=== PATIENT | male | born 1950 | race Caucasian/White ===

== ENCOUNTER → 2016-05-30 | Outpatient (CLI) | payer OTHER ==
[~2016-05-30] MED LIST: APIX1TAB3; ATOR-24 PO; BRIM0.15 OP; CLC100 PO; DVN80125 PO; MULT-506 PO; OMEG10007 PO; OXYC7.5T62 PO; POTA10TA PO; SOTA80TA55 PO; TIMO0.05 OP
[2016-05-30 15:00] LABS: URINE APPEARANCE CLEAR (CLEAR); URINE BILIRUBIN NEG (NEG); URINE COLOR YELLOW; URINE EPITHELIAL CELL AUTO 0-5 /lpf (0-5); URINE NITRITE NEG (NEG); URINE PH 6.5 (4.5-7.5); URINE SPECIFIC GRAVITY 1.012 (1.000-1.030); UROBILINOGEN NEG (NEG); ZZUR CULT IF INDIC CLEAN CATCH NO
[2016-05-30 15:07] LABS: URINE PROTIEN/CREAT RATIO 0.2 (0-0.2); URINE TOTAL PROTEIN 10.2 mg/dl (0-11.9)
[2016-05-30 15:12] LABS: MANUAL MICROSCOPIC REQUIRED? NO; REVIEW REQ? NO
== END | disposition home or self-care (01) ==
LOC: C.LAB1850 13:37
PROVIDERS: ATTEND Internal Medicine Nephrology
DX: Z90.5 Acquired absence of kidney (principal)

== ENCOUNTER → 2016-06-04 | Outpatient (CLI) | payer OTHER ==
[2016-06-04 10:15] LABS: HEMATOCRIT 35.3 % (42-52); MEAN CELL VOLUME 82.5 fL (80-100); MEAN CORPUSCULAR HEMOGLOBIN 26.6 pg (25-34); MEAN CORPUSCULAR HGB CONC 32.3 g/dl (32-36); MEAN PLATELET VOLUME 10.4 fL (7.4-10.4); PLATELET COUNT 298 K/uL (130-400); RED BLOOD COUNT 4.28 M/uL (4.7-6.1); WHITE BLOOD COUNT 5.58 K/uL (4.8-10.8)
[2016-06-04 10:55] LABS: PROSTATE SPECIFIC ANTIGEN 3.58 ng/ml (0.000-4.000)
== END | disposition home or self-care (01) ==
LOC: C.LAB1850 09:22
PROVIDERS: ATTEND Internal Medicine
DX: Z00.00 Encounter for general adult medical examination without abnormal findings (principal); D64.9 Anemia, unspecified

== ENCOUNTER → 2016-10-04 | Outpatient (CLI) | payer OTHER ==
[~2016-10-04] MED LIST changes: +SOTA80TA20 PO; -SOTA80TA55 PO
[2016-10-04 12:03] LABS: HEMATOCRIT 39.3 % (42-52); MEAN CELL VOLUME 82.9 fL (80-100); MEAN CORPUSCULAR HEMOGLOBIN 26.2 pg (25-34); MEAN CORPUSCULAR HGB CONC 31.6 g/dl (32-36); MEAN PLATELET VOLUME 10.5 fL (7.4-10.4); PLATELET COUNT 263 K/uL (130-400); RED BLOOD COUNT 4.74 M/uL (4.7-6.1); WHITE BLOOD COUNT 5.47 K/uL (4.8-10.8)
[2016-10-04 12:10] LABS: ALT/SGPT 26 U/L (12-78); BLOOD UREA NITROGEN 17 mg/dl (7-18); BUN/CREATININE RATIO 12.9 (10-20); CARBON DIOXIDE 30 mmol/L (21-32); CHLORIDE 104 mmol/L (98-107); GLUCOSE 102 mg/dl (70-99); POTASSIUM 4.2 mmol/L (3.5-5.1); SODIUM 140 mmol/L (136-145)
[2016-10-04 12:12] LABS: CALCIUM 8.8 mg/dl (8.5-10.1)
[2016-10-04 12:13] LABS: ALKALINE PHOSPHATASE 91 U/L (45-117); AST/SGOT 18 U/L (15-37); PHOSPHORUS 3.2 mg/dl (2.5-4.9)
== END | disposition home or self-care (01) ==
LOC: C.LAB1850 09:48
PROVIDERS: ATTEND Internal Medicine Nephrology
DX: C64.9 Malignant neoplasm of unspecified kidney, except renal pelvis (principal); D64.9 Anemia, unspecified

== ENCOUNTER → 2016-10-15 | Outpatient (CLI) | payer OTHER ==
[~2016-10-15] MED LIST changes: +OPTIRAY 320 IV PRN
--- NOTE | 2016-10-15 10:13 | DIAGNOSTIC IMAGING REPORT ---
CT ABD/PELVIS IV CONTRAST ONLY CLINICAL HISTORY: CLEAR CELL CARCINOMA OF THE KIDNEY COMPARISON STUDY: 03/16/2016 TECHNIQUE: Following the IV administration of 93 mL of Optiray-320, CT scan of the abdomen and pelvis was performed from the lung bases to the proximal femurs. Images are reviewed in the axial, sagittal, and coronal planes. IV contrast was administered without complication. CT DOSE: FINDINGS: Lower chest: The heart is normal in size and configuration, without pericardial effusion. The lung bases and pleural spaces are clear. Liver: There is a stable 9 mm hypodensity within the lateral segment left hepatic lobe consistent with a cyst. Gallbladder: Cholelithiasis Spleen: Normal in size and attenuation. Pancreas: Unremarkable. Adrenal glands: Unremarkable. Kidneys: The left kidney is surgically absent. There is a stable 13 mm left renal hypodensity, likely representing a cyst. Bowel: There are no transition zones indicate bowel obstruction. The appendix appears normal. There is no acute diverticulitis. Peritoneum: There is no intraperitoneal free air or abdominal ascites. Vasculature: The abdominal aorta is normal in course and caliber. Adenopathy: There is no pathologic adenopathy by size criteria. Pelvic viscera: The bladder, and pelvic viscera are unremarkable. Skeletal structures: No destructive osseous lesions are seen. Degenerative changes are evident. There is multilevel spinal stenosis. IMPRESSION: Interval left nephrectomy. No evidence of metastatic disease within the abdomen or pelvis. Electronically signed by: Aleksey Mansfield M.D. 10/15/2016 10:12 AM Dictated Date/Time: 10/15/2016 10:07 AM
--- NOTE | 2016-10-15 10:15 | DIAGNOSTIC IMAGING REPORT ---
CT OF THE CHEST WITH IV CONTRAST CLINICAL HISTORY: Clear cell carcinoma of the kidney. COMPARISON STUDY: Chest radiograph May 04, 2016. TECHNIQUE: Following IV administration of 93 mL of Optiray-320, helical axial images of the chest were obtained. Images were viewed in the axial, sagittal and coronal planes. IV contrast was administered without complication. CT DOSE: 908.91 mGy.cm FINDINGS: No enlarged axillary, mediastinal or hilar lymph nodes are present. Mild cardiomegaly is noted. There is a trace pericardial effusion. Central airways are patent. There is no consolidation to suggest pneumonia. There is no pneumothorax or pleural effusion. Note is made of a 6 mm right lower lobe nodule shown image 171 of 311 and a 4 mm subpleural nodule within the right upper lobe on image 135. There is a 3 mm calcified granuloma within the right upper lobe. There is an azygos fissure. No suspicious osseous lesions are identified within visualized portions of the bony thorax. The abdomen and pelvis will be reported separately. The patient is status post left nephrectomy. IMPRESSION: 1. No convincing evidence of metastatic disease within the chest. 2. Two right lung nodules which measure up to 6 mm. These are likely benign but a follow-up chest CT in 6 months to ensure stability is recommended. 3. No thoracic lymphadenopathy. Electronically signed by: Piter Steel M.D. 10/15/2016 10:14 AM Dictated Date/Time: 10/15/2016 10:06 AM
== END | disposition home or self-care (01) ==
LOC: C.CTS 09:30
PROVIDERS: ATTEND Urology
DX: Z90.5 Acquired absence of kidney (principal)

== ENCOUNTER → 2017-02-22 | Outpatient (CLI) | payer OTHER ==
[~2017-02-22] VITALS: Ht 172.7 cm; Wt 89.6 kg
[~2017-02-22] MED LIST changes: -OPTIRAY 320 IV PRN; -SOTA80TA20 PO; +SOTA80TA55 PO
[2017-02-22 13:15] VITALS: BP 154/80; PULSE 56; Ht 172.7 cm; Wt 89.6 kg
== END | disposition home or self-care (01) ==
LOC: C.NEUR 12:25
PROVIDERS: ATTEND Internal Medicine Pulmonary Disease
DX: Z90.5 Acquired absence of kidney (principal); D64.9 Anemia, unspecified; I48.91 Unspecified atrial fibrillation; C64.9 Malignant neoplasm of unspecified kidney, except renal pelvis; E78.5 Hyperlipidemia, unspecified; E78.00 Pure hypercholesterolemia, unspecified; H40.9 Unspecified glaucoma; H91.90 Unspecified hearing loss, unspecified ear; R31.9 Hematuria, unspecified; I10 Essential (primary) hypertension; N28.89 Other specified disorders of kidney and ureter; R91.8 Other nonspecific abnormal finding of lung field; G47.33 Obstructive sleep apnea (adult) (pediatric); R00.2 Palpitations

== ENCOUNTER → 2017-04-08 | Outpatient (CLI) | payer OTHER ==
[~2017-04-08] MED LIST changes: +SOTA80TA20 PO; -SOTA80TA55 PO
[2017-04-08 09:27] LABS: BASO % 0.3 %; BASO ABS # 0.02 K/uL (0-0.2); COMPLETE YES; EOS % 4.3 %; HEMATOCRIT 41.8 % (42-52); IG% 0.2 %; LYMPH % 15.9 %; LYMPH ABS # 0.92 K/uL (1.2-3.4); MEAN CELL VOLUME 86.5 fL (80-100); MEAN CORPUSCULAR HEMOGLOBIN 28.6 pg (25-34); MONO % 9.2 %; NEUT % 70.1 %; PLATELET COUNT 281 K/uL (130-400); RED BLOOD COUNT 4.83 M/uL (4.7-6.1); WHITE BLOOD COUNT 5.78 K/uL (4.8-10.8)
[2017-04-08 09:53] LABS: ALT/SGPT 27 U/L (12-78); AST/SGOT 21 U/L (15-37); BLOOD UREA NITROGEN 20 mg/dl (7-18); BUN/CREATININE RATIO 17.3 (10-20); CALCIUM 8.8 mg/dl (8.5-10.1); CARBON DIOXIDE 30 mmol/L (21-32); CHLORIDE 101 mmol/L (98-107); CREATININE 1.13 mg/dl (0.60-1.40); GLUCOSE 110 mg/dl (70-99); MAGNESIUM 2.3 mg/dl (1.8-2.4); PHOSPHORUS 3.2 mg/dl (2.5-4.9); POTASSIUM 3.2 mmol/L (3.5-5.1); SODIUM 139 mmol/L (136-145)
[2017-04-08 09:57] LABS: ALKALINE PHOSPHATASE 126 U/L (45-117); FERRITIN 60.2 ng/ml (8.0-388.0); TOTAL IRON BINDING CAPACITY 326 mcg/dl (250-450)
[2017-04-08 10:43] LABS: URINE APPEARANCE CLEAR (CLEAR); URINE BILIRUBIN NEG (NEG); URINE COLOR DK YELLOW; URINE EPITHELIAL CELL AUTO >30 /lpf (0-5); URINE NITRITE NEG (NEG); URINE SPECIFIC GRAVITY 1.023 (1.000-1.030); UROBILINOGEN NEG (NEG); ZZUR CULT IF INDIC CLEAN CATCH NO
[2017-04-08 10:46] LABS: MANUAL MICROSCOPIC REQUIRED? NO; REVIEW REQ? NO
[2017-04-08 11:13] LABS: URINE PROTIEN/CREAT RATIO 0.1 (0-0.2); URINE TOTAL PROTEIN 44.7 mg/dl (0-11.9)
--- NOTE | 2017-04-12 12:29 | CODING QUERY MEDICAL NECESSITY ---
CQSUPPORTING DIAGNOSIS NEEDED A supporting diagnosis is required for the test/procedure performed on this patient in order for us to be reimbursed by the patient's insurance. Please provide a supporting diagnosis for the following test/procedure listed below next to the test name along with your signature. *If there is no additional diagnosis for this patient that would support the following test/procedure please document that below next to the test/procedure. Test(s)/Procedure(s) that require a supporting diagnosis: DOS 04/08/17 PROSTATE SPECIFIC TEST Provider Signature: Date: Thank you La Mendoza [email or web address] Information [employer] Once completed, please kindly fax back to [phone] For questions please call [phone]
--- NOTE | 2017-04-12 12:32 | CODING QUERY MEDICAL NECESSITY ---
CQSUPPORTING DIAGNOSIS NEEDED A supporting diagnosis is required for the test/procedure performed on this patient in order for us to be reimbursed by the patient's insurance. Please provide a supporting diagnosis for the following test/procedure listed below next to the test name along with your signature. *If there is no additional diagnosis for this patient that would support the following test/procedure please document that below next to the test/procedure. Test(s)/Procedure(s) that require a supporting diagnosis: DOS 04/08/17 VITAMIN D TEST Provider Signature: Date: Thank you La Mendoza [employer] Information Management Once completed, please kindly fax back to [phone] For questions please call [phone]
== END | disposition home or self-care (01) ==
LOC: C.LAB1850 08:42
PROVIDERS: ATTEND Internal Medicine Nephrology
DX: I10 Essential (primary) hypertension (principal); N28.89 Other specified disorders of kidney and ureter; Z90.5 Acquired absence of kidney; D64.9 Anemia, unspecified

== ENCOUNTER → 2017-04-16 | Outpatient (CLI) | payer OTHER ==
--- NOTE | 2017-04-16 13:08 | DIAGNOSTIC IMAGING REPORT ---
CT SCAN OF THE CHEST WITH IV CONTRAST CLINICAL HISTORY: Follow-up pulmonary nodules. Renal cell carcinoma. COMPARISON STUDY: Chest CT dated 10/15/2016. TECHNIQUE: Following the IV administration of 94 cc of Optiray 320, CT scan of the thorax was performed from the thoracic inlet to the upper abdomen. Images are reviewed in the axial, sagittal, and coronal planes. IV contrast was administered without complication. A dose lowering technique was utilized adhering to the principles of ALARA. CT DOSE: 481.69 mGycm FINDINGS: Thyroid: Imaged portions of the thyroid gland are normal in size and attenuation. Thoracic aorta: There is atherosclerotic calcification of the thoracic aorta, which is normal in caliber and demonstrates bovine variant arch anatomy. No dissection is seen. Pulmonary vasculature: The pulmonary trunk is normal in caliber. There are no filling defects identified in the central pulmonary vessels to indicate pulmonary embolus. Note that this examination was not protocoled for evaluation of the pulmonary arteries. Heart: The heart is enlarged and without pericardial effusion. The coronary arteries are densely calcified. Lungs and pleural spaces: Mild emphysema is identified. An accessory azygous fissure is incidentally noted. No airspace consolidation or pleural effusion is seen. The trachea and central airways are clear. A 6 mm right lower lobe nodule is again seen on image #210. A 3 mm right upper lobe nodule is seen on image #156, a 2 mm right upper lobe nodule on image #97, and a 3 mm pleural-based nodule at the left apex is seen on image #76. These are unchanged from previous. No new pulmonary nodules are identified. A small calcified granuloma is noted in the right upper lobe. Mediastinum: Small calcified nodes are incidentally noted. There is no mediastinal lymphadenopathy. Sonam: There are small calcified hilar lymph nodes. No pathologically enlarged lymph nodes are seen. Axillae: There is no axillary lymphadenopathy. Upper abdomen: There is a tiny hiatal hernia. Calcified gallstones are observed. Findings suggest history of left nephrectomy. 1.4 cm right renal cyst is partially visualized. Skeletal structures: The skeletal structures are osteopenic. Mild degenerative change is seen throughout the thoracic spine. No lytic or blastic bony lesions are seen. IMPRESSION: 1. There is no definite evidence of intrathoracic metastatic disease. 2. Scattered (less than 5) indeterminant pulmonary and pleural-based nodules measuring up to 6 mm are unchanged in size and distribution from 10/15/2016. Continued attention at follow-up is recommended. 3. Cardiomegaly and mild emphysema. 4. No airspace consolidation or pleural effusion is identified. 5. Additional findings as above. Electronically signed by: Federico Krause M.D. 04/16/2017 1:07 PM Dictated Date/Time: 04/16/2017 12:58 PM
== END | disposition home or self-care (01) ==
LOC: C.CTS 11:05
PROVIDERS: ATTEND Urology
DX: N28.89 Other specified disorders of kidney and ureter (principal); R91.8 Other nonspecific abnormal finding of lung field; I51.7 Cardiomegaly

== ENCOUNTER → 2017-05-03 | Outpatient (CLI) | payer OTHER ==
[2017-05-03 13:04] LABS: BLOOD UREA NITROGEN 24 mg/dl (7-18); CALCIUM 8.5 mg/dl (8.5-10.1); CARBON DIOXIDE 31 mmol/L (21-32); CHLORIDE 102 mmol/L (98-107); GLUCOSE 101 mg/dl (70-99); MAGNESIUM 2.4 mg/dl (1.8-2.4); POTASSIUM 3.9 mmol/L (3.5-5.1); SODIUM 137 mmol/L (136-145)
[2017-05-03 13:22] LABS: BUN/CREATININE RATIO 21.8 (10-20)
== END | disposition home or self-care (01) ==
LOC: C.LAB1850 11:01
PROVIDERS: ATTEND Internal Medicine Nephrology
DX: E87.6 Hypokalemia (principal)

== ENCOUNTER → 2017-08-08 | Outpatient (CLI) | payer OTHER ==
[2017-08-08 09:55] LABS: BASO % 0.5 %; BASO ABS # 0.03 K/uL (0-0.2); EOS % 5.7 %; EOS ABS # 0.33 K/uL (0-0.5); HEMATOCRIT 37.3 % (42-52); HEMOGLOBIN 12.2 g/dL (14.0-18.0); IG# 0.01 K/uL (0.00-0.02); LYMPH % 15.9 %; LYMPH ABS # 0.92 K/uL (1.2-3.4); MEAN CELL VOLUME 84.6 fL (80-100); MEAN CORPUSCULAR HEMOGLOBIN 27.7 pg (25-34); MEAN CORPUSCULAR HGB CONC 32.7 g/dl (32-36); MEAN PLATELET VOLUME 10.4 fL (7.4-10.4); MONO % 8.3 %; MONO ABS # 0.48 K/uL (0.11-0.59); NEUT % 69.4 %; PLATELET COUNT 281 K/uL (130-400); RED CELL DISTRIBUTION WIDTH CV 14.8 % (11.5-14.5); RED CELL DISTRIBUTION WIDTH SD 45.4 fL (36.4-46.3); WHITE BLOOD COUNT 5.77 K/uL (4.8-10.8)
[2017-08-08 10:31] LABS: HEMOGLOBIN A1C 5.9 % (4.5-5.6)
== END | disposition home or self-care (01) ==
LOC: C.LAB1850 08:41
PROVIDERS: ATTEND Nurse Practitioner Adult Health
DX: R73.9 Hyperglycemia, unspecified (principal); E78.5 Hyperlipidemia, unspecified; D64.9 Anemia, unspecified

== ENCOUNTER → 2017-09-20 | Outpatient (CLI) | payer OTHER ==
[~2017-09-20] MED LIST changes: -TIMO0.05 OP; +TIMO0.2518 OP
[2017-09-20 13:34] LABS: ALBUMIN 3.9 gm/dl (3.4-5.0); ALT/SGPT 24 U/L (12-78); AST/SGOT 21 U/L (15-37); BLOOD UREA NITROGEN 20 mg/dl (7-18); CARBON DIOXIDE 33 mmol/L (21-32); CREATININE 1.19 mg/dl (0.60-1.40); GLUCOSE 99 mg/dl (70-99); POTASSIUM 3.9 mmol/L (3.5-5.1); SODIUM 140 mmol/L (136-145)
[2017-09-20 13:37] LABS: ALKALINE PHOSPHATASE 99 U/L (45-117); TOTAL PROTEIN 7.8 gm/dl (6.4-8.2)
== END | disposition home or self-care (01) ==
LOC: C.LAB1850 10:30
PROVIDERS: ATTEND Urology
DX: I48.91 Unspecified atrial fibrillation (principal); I10 Essential (primary) hypertension; N28.89 Other specified disorders of kidney and ureter; Z90.5 Acquired absence of kidney; C64.9 Malignant neoplasm of unspecified kidney, except renal pelvis

== ENCOUNTER → 2017-09-30 | Outpatient (CLI) | payer OTHER ==
[~2017-09-30] MED LIST changes: +OPTIRAY 320 IV PRN
--- NOTE | 2017-09-30 11:43 | DIAGNOSTIC IMAGING REPORT ---
ABD/PELVIS IV CONTRAST ONLY CLINICAL HISTORY: 67 years-old Male presenting with C64.9 kidney cancer. TECHNIQUE: Multidetector CT of the abdomen and pelvis was performed after the administration of intravenous contrast. IV contrast: 80 mL of Optiray 320. A dose lowering technique was used consistent with the principles of ALARA (as low as reasonably achievable). COMPARISON: 10/15/2016. CT DOSE (mGy.cm): The estimated cumulative dose is 554.88 mGy.cm. FINDINGS: Software Engineering Manager topogram: Cholelithiasis. Lung bases: Minimal basilar opacities, likely atelectasis. Mild biatrial enlargement of the heart. Coronary artery calcification. No pericardial or pleural effusion. Liver: Normal morphology. Well-defined hypodensity in the left hepatic lobe likely hepatic cyst or hamartoma. Patent hepatic vasculature. Biliary: No intrahepatic or extrahepatic biliary ductal dilatation. Gallbladder contains gallstones. Focal wall thickening of the fundus likely adenomyomatosis. Pancreas: Normal. Spleen: Normal. Adrenal glands: Postsurgical changes of left adrenalectomy or partial adrenalectomy suspected with surgical material in the left suprarenal fossa. Kidneys and ureters: Postsurgical changes of left nephrectomy. The residual left ureter in the mid to distal portion is normal appearing. No suspicious soft tissue in the operative bed. Right kidney contains a well-defined hypodense lesion unchanged in appearance since prior and consistent with simple cyst. No hydronephrosis or nephrolithiasis. Right ureter normal. Bladder: Incompletely evaluated secondary to underdistention. Pelvic organs: Prostate enlargement likely secondary to benign prostatic hyperplasia. Bowel: Normal appendix. No bowel obstruction. Intermittent feces noted in the small bowel without convincing evidence of small bowel obstruction. The appearance is similar to prior exam. Could suggest delayed transit or intervening stenoses with low-grade obstruction. Peritoneal cavity: No free fluid or intraperitoneal gas. Lymph nodes: No enlarged lymph nodes in the abdomen or pelvis. Vasculature: Atherosclerosis of the normal caliber abdominal aorta. IVC patent. Abdominal wall: Normal. Musculoskeletal: Degenerative changes of the spine. IMPRESSION: 1. Postsurgical changes of left nephrectomy without evidence of residual or recurrent disease. No metastatic disease in abdomen or pelvis. No lymphadenopathy. 2. Redemonstration of feces in the small bowel without convincing evidence of a complete bowel obstruction. Findings could represent delayed transit or multifocal small bowel stenosis with low-grade partial obstruction. Electronically signed by: Kiel Ramos M.D. 09/30/2017 11:42 AM Dictated Date/Time: 09/30/2017 11:29 AM
--- NOTE | 2017-09-30 11:45 | DIAGNOSTIC IMAGING REPORT ---
CHEST 2 VIEWS ROUTINE CLINICAL HISTORY: 67 years-old Male presenting with C64.9 Clear cell carcinoma of [id number]. TECHNIQUE: PA and lateral views of the chest were obtained. COMPARISON: 05/04/[address] from 04/16/2017. FINDINGS: Atherosclerosis of the aortic arch. Cardiac silhouette normal in size. Incidental note made of an azygos fissure Lungs and pleural spaces clear. Degenerative changes of the thoracic spine. Upper abdomen normal. IMPRESSION: 1. No acute cardiopulmonary disease. Sensitivity of evaluation for metastatic disease by radiograph is extremely limited. If there is clinical concern for metastatic disease, chest CT should be obtained. Electronically signed by: Kiel Ramos M.D. 09/30/2017 11:44 AM Dictated Date/Time: 09/30/2017 11:42 AM
== END | disposition home or self-care (01) ==
LOC: C.CTS 10:53
PROVIDERS: ATTEND Urology
DX: C64.9 Malignant neoplasm of unspecified kidney, except renal pelvis (principal)

== ENCOUNTER → 2017-11-27 | Outpatient (CLI) | payer OTHER ==
[~2017-11-27] MED LIST changes: -OPTIRAY 320 IV PRN
--- NOTE | 2017-11-28 06:16 | PAP/PSG TECHNICIAN REPORT ---
[facility] Yardage Tufting Machine Operator Polysomnogram Report Study name: None Report date: 11/28/2017 Study date: 11/27/2017 Referring Physician: Dr. Elton Chamberlain DO Name: PRITESHRACHELLGERMAINECHEIKH SPAULDING Interpreting Physician: Elton Chamberlain D.O. Date of : 1950 Yardage Tufting Machine Operator: Magnolia Lange RPSGT. Sex: Male Age: 67 Study Type: PSG Weight: 200 lbs Height: 67 years, Height 5' 8" BMI: 30.41 Medications: Eliquis 5 mg, Flecainide Acetate 100 mg, Metoprolol Succinate ER 25 mg, Docusate Sodium 100 mg, Atorvastatin Calcium 40 mg, Amlodipine Besylate 5 mg, Valsartan-HCTZ 130-25 mg, K-Tab 10 MEQ, Fish Oil caps, Lantanoprost 0.005%, Multi Vitmains Patient History 67 yr-old male here for a baseline study. Patient complains of snoring and some fatigue. He had a HST on 10/29/16 that showed an CANDIDA of 5.8, he declined treatment at that time but is now more fatigued. His Weiner Scale is 13/24. The test was started on room air. ETC02 testing was not utilized during this study. Room 3 Parameters Monitored NPSG: E1-M2, E2-M1, Fp1-M2, Fp2-M1, F3-M2, F4-M2, F4-M1, C3-M2, C4-M2, C4-M1, O1-M2, O2-M2, O2-M1, T3-M2, T4-M1, P3-M2, P4-M1, CHIN1, CHIN2, HR, EKG, Legs, PFLOW, SNOR, FLOW, CFLOW, Tidal Volume, THOR, ABDO, SpO2, PLTH, CPRESS, ETCO2 Wave, ETCO2, pH Sleep Architecture Sleep Stages Time at Lights Off 10:40:29 PM STAGES Time (min.) TST (%) Time at Lights On 5:24:29 AM Wake 120.0 -- Total Recording Time (TRT) 404.00 min. N1 36.5 13 Total Sleep Period (TSP) 393.5 min. N2 168.5 59 Total Sleep Time (TST) 284.0min. N3 35.5 13 Awake Time 120.0 min. REM 43.5 15 Wake after Sleep Onset 109.5 min. Sleep Efficiency (SE) 70 % Sleep Onset Latency (ALBERT) 10.5 min. Number of Stage 1 Shifts None Awakenings 21 Stage Changes 94 Number of REM periods 3 REM 43.5 15 REM Latency 110.0 min. NREM 240.5 85 Body Position Analysis Supine Right Left Side Prone Vertical Total Sleep Time (min.) 28.4 0.0 271.0 271.00 0.0 0.0 Total Sleep Time (%) 5% 0% 95% 95 0% N/A% Total Sleep Time REM (min.) 0.0 0.0 43.5 None 0.0 0.0 Total Sleep Time NREM (min.) 13.0 0.0 227.5 None 0.0 0.0 Intermittent Wake (min.) 15.4 0.0 104.6 None 0.0 0.0 Total Sleep Period (%) 7% None None None None None Arousals Myoclonus (PLM) * Events Count Index Events Count Index Spontaneous 13 3 Events Awake (PLMW) 62 31.0 Respiratory 36 8.0 Events Asleep w/ Arousal (PLMA) 10 2.1 PLM 10 2 Events Asleep w/o Arousal (PLMS) 88 18.6 Snoring 7 1 Total Asleep 98 20.7 Total 66 14 Total 160 24 Respiratory Analysis * CA OA MA CH H RERA Total Count 26 1 2 0 49 5 78 Index 5.5 0.2 0.4 0 10.4 1 17.5 Mean Duration 25.4 17.9 28.1 0.00 24.6 22.2 24.7 Longest Duration 38.6 17.9 35.4 0.00 35.4 25.3 46.0 Respiratory Event Summary Total Supine ~Supine Right Left Prone REM NREM Apneas Count 29 17 12 N/A 12 N/A 0 29 Index 6.1 78 3 N/A 2.7 N/A 0 7 Hypopneas (4% Desat) Count 49 0 49 N/A 49 N/A 3 46 Index 10.4 0.0 11 N/A 10.8 N/A 4.1 11.5 Apneas & All Hypopneas Count 78 17 61 N/A 61 N/A 3 75 Index 16.5 78 14 N/A 14 N/A 4.1 18.7 Respiratory Events (Feed Grinder+All Hyp+RERA) Count 78 17 66 N/A 66 N/A 3 75 Index 17.5 78 15 N/A 14.6 N/A 4.1 20.0 Respiratory Related Arousal Count 36 17 22 N/A 22 N/A 2 36 Index 8.0 74 5 N/A 5 N/A 3 9 Snoring Analysis Supine Right Left Prone REM NREM Total Snore duration 58.1 min Snores count 25 N/A 1,723 N/A 19 1,729 1,748 Snore mean duration 2.0 Sec Snores index 115 N/A 381 N/A 26.2 431.4 369.3 TST with snoring (%) 20.4% Desaturation Event Summary: Minimum %SpO2 Event Count Mean/Min/Max Duration(sec.) Desaturation Index % Time In Bed > 90 115 27.6 / 5.5 / 60.0 24.3 75.6 86 - 90 4 19.3 / 5.5 / 33.0 2.7 24.0 81 - 85 1 13.8 / 13.8 / 13.8 34.2 0.5 76 - 80 0 N/A 0.0 0.0 71 - 75 0 N/A 0.0 0.0 66 - 70 0 N/A 0.0 0.0 61 - 65 0 N/A 0.0 0.0 56 - 60 0 N/A 0.0 0.0 51 - 55 0 N/A 0.0 0.0 < 50 0 N/A 0.0 0.0 Total REM NREM Awake <50% 0.0 min. 0.0 min. 0.0 min. 0.0 min. 51 - 60% 0.0 min. 0.0 min. 0.0 min. 0.0 min. 61 - 70% 0.0 min. 0.0 min. 0.0 min. 0.0 min. 71 - 80% 0.0 min. 0.0 min. 0.0 min. 0.0 min. 81 - 90% 91.7 min. 3.1 min. 67.1 min. 21.5 min. 91 - 100% 283.5 min. 40.4 min. 173.4 min. 69.7 min. Average 92 92 92 92 Minimum SpO2 78 85 82 78 Desaturation Event Index 17.2 4.1 20.0 18.0 # Desat. Events below 89% 34 2 24 8 Time(%) with Saturation below 89% 3.1 0.2 2.3 0.6 Time(min.) with Saturation below 89% 11.6 0.7 8.7 2.2 Time (mins) REM (mins) NREM (mins) % of TST SpO2 Below 90% 62 2 N60 13.1 SpO2 Below 88% 13 0 0 1 Heart Rate Analysis Min (bpm) Max (bpm) Average (bpm) Awake 47 173 80 NREM 50 100 69 REM 54 97 72 Overall 50 100 70 Supplemental O2 Values Minimum O2 level: None Value Start Time End Time Yardage Tufting Machine Operator Comments Mr. Stallings slept in the left and supine positions. Cardiac arrhythmias were noted (please refer to the printouts). Some PLMs were noted. No bruxism noted. Snoring was noted and scored as a 3-4 on a scale of 1 through 5. (0=no snoring, 5=snoring loud enough to be heard through a closed door or down the whaley way). He used the restroom seven times during the night. Mr. Stallings stated that he slept about the same as usual. The final report will be interpreted and signed by a sleep physician. The completed physician report will then be placed in the patient medical record. Therapy (cm H2O) 0 TIB (min.) 404.0 TST (min.) 284.0 Sleep Onset (min.) 10.5 REM Onset From Sleep (min.) 110.0 Sleep Efficiency % 70 Wakefulness (%) 30 Wakefulness (min.) 120.0 NREM 1 (%) 13 NREM 1 (min.) 36.5 NREM 2 (%) 59 NREM 2 (min.) 168.5 NREM 3 (%) 13 NREM 3 (min.) 35.5 REM (%) 15 REM (min.) 43.5 # Arousals 66 Arousal Index 14 # Snore 1,748 Snore Index 369.3 AHI 16.5 AHI Supine 78 AHI Non-Supine 14 NREM AHI 18.7 REM AHI 4.1 RDI 17.5 # Obstructive Apnea 1 # Central Apnea 26 # Mixed Apnea 2 # Hypopneas 49 RERAs 5 Total Respiratory Events 88 Time Below SpO2 89% (min.) 9.3 Mean NREM SpO2 (%) 92 Mean REM SpO2 (%) 92 Mean Sleep SpO2 (%) 92 Min NREM SpO2 (%) 82 Min REM SpO2 (%) 85 Position Supine (min.) 28.4 Position Non-supine (min.) 271.0 LM Index Sleep 20.7 LM Index NREM 23.5 LM Index REM 5.5 Mean Heart Rate (bpm) 70 Min Heart Rate (bpm) 50
--- NOTE | 2017-11-29 19:01 | POLYSOMNOGRAPH REPORT ---
CLINICAL DATA: The patient is a 67-year-old male with a history of snoring and fatigue. His Padroni sleepiness scale score is 13. He has a history of hypertension and atrial fibrillation. The patient had a home sleep study done 10/29/2016 that showed an CANDIDA 5.8 indicating mild sleep apnea. He declined treatment at that time, but now is having more fatigue. This was an in-lab overnight diagnostic polysomnography. SLEEP ARCHITECTURE: The total sleep period is 393.5 minutes. The total sleep time is 284 minutes. The sleep efficiency is decreased to 70%. The sleep onset latency was 10.5 minutes. Wake after sleep onset was increased to 109.5 minutes. The REM latency was top normal at 110 minutes. There were 2 REM periods during the night. Sleep consisted of stage N1 13%, stage N2 59%, stage N3 13%, stage REM 15%. AROUSAL DATA: The patient had 66 arousals including 13 spontaneous, 13 respiratory, 10 PLM, and 7 snoring arousals. The arousal index was 14. PLM DATA: The patient had 98 periodic limb movements for a PLM index of 20.7. There were 10 arousals associated with limb movements for a PLM arousal index of 2.1. EKG: The cardiac rhythm at the start of the study was normal sinus. He converted to atrial fibrillation at 12:26 a.m. He converted back to sinus rhythm at 4:50 a.m. The cardiac rates ranged from 50 to 100 beats per minute with an average of 70 beats per minute. RESPIRATORY DATA: The patient had a total of 78 respiratory events including 26 central apneas, 1 obstructive apnea, 2 mixed apneas, and 49 hypopneas. Hypopneas were scored according to the 4% desaturation rule. There were 5 RERAs. The longest apnea was 38.6 seconds. The mean duration of the hypopneas was 24.6 seconds. The apnea hypopnea index was elevated at 16.5 events per hour. This would represent moderate obstructive sleep apnea. OXIMETRY DATA: The average saturation for the night was 92%. The minimum saturation was 78%. These desaturations occurred for the most part when he was having apnea and when he was in the supine position. There was a total of 11.6 minutes with saturations less than 89%. ROUTER TENDER COMMENTS: Mr. Stallings slept in the left and supine positions. Cardiac arrhythmias were noted. Some PLMs were noted. No bruxism noted. Snoring was noted and scored as a 3-4 on a scale of 1 through 5. He used the restroom 7 times during the night. He stated that he slept about the same as usual. IMPRESSION: 1. Moderate obstructive sleep apnea. 2. Paroxysmal atrial fibrillation. RECOMMENDATIONS: 1. It is advised that the patient be given a trial of nasal CPAP. The options would include an in-lab CPAP titration, which would be preferred in light of the central sleep apneas noted. Alternatively, he could be treated with auto CPAP. 2. It is strongly advised that the patient avoid sleeping in the supine position. Although, he had relatively little time supine during this study, the apnea-hypopnea index while supine was 78. 3. Weight loss is advised in light of the elevation of body mass index at 30.41.
== END | disposition home or self-care (01) ==
LOC: C.NEUR 21:00
PROVIDERS: ATTEND Internal Medicine Pulmonary Disease
DX: G47.33 Obstructive sleep apnea (adult) (pediatric) (principal); I48.0 Paroxysmal atrial fibrillation

== ENCOUNTER → 2017-12-24 | Outpatient (CLI) | payer OTHER ==
--- NOTE | 2017-12-25 06:24 | PAP/PSG TECHNICIAN REPORT ---
[facility] Bench Boring Machine Operator Polysomnogram Report Study name: None Report date: 12/25/2017 Study date: 12/24/2017 Referring Physician: Dr. Elton Chamberlain DO Name: CHEIKH STALLINGS Interpreting Physician: Elton Chamberlain D.O. Date of : 1950 Bench Boring Machine Operator: Magnolia Lange RPSGT. Sex: Male Age: 67 Study Type: PSG PAP Weight: 200 lbs Height: 67 years, Height 5' 8" BMI: 30.41 Medications: Eliquis 5 mg, Flecainide Acetate 100 mg, Metoprolol Succinate ER 25 mg, Docusate Sodium 100 mg, Atorvastatin Calcium 40 mg, Amlodipine Besylate 5 mg, Valsartan-HCTZ 130-25 mg, K-Tab 10 MEQ, Fish Oil caps, Lantanoprost 0.005%, Multi Vitmains Patient History 67 yr-old male here for a new CPAP treatment study. He was found to be positive for AYAN with an AHI of 16.5. His diagnostic study was on 11/27/17. He chose a Simplus full face mask size medium from [employer]. The test was started on room air and 4 CMH2O then increased to 6 CMH2O for his request for more air. ETCO2 testing was not utilized during this study. Room 1 Parameters Monitored NPSG: E1-M2, E2-M1, Fp1-M2, Fp2-M1, F3-M2, F4-M2, F4-M1, C3-M2, C4-M2, C4-M1, O1-M2, O2-M2, O2-M1, T3-M2, T4-M1, P3-M2, P4-M1, CHIN1, CHIN2, HR, EKG, Legs, PFLOW, SNOR, FLOW, CFLOW, Tidal Volume, THOR, ABDO, SpO2, PLTH, CPRESS, ETCO2 Wave, ETCO2, pH Sleep Architecture Sleep Stages Time at Lights Off 10:58:16 PM STAGES Time (min.) TST (%) Time at Lights On 5:30:46 AM Wake 51.0 -- Total Recording Time (TRT) 392.50 min. N1 49.0 14 Total Sleep Period (TSP) 386.0 min. N2 201.5 59 Total Sleep Time (TST) 341.5min. N3 37.5 11 Awake Time 51.0 min. REM 53.5 16 Wake after Sleep Onset 44.5 min. Sleep Efficiency (SE) 87 % Sleep Onset Latency (ALBERT) 6.5 min. Number of Stage 1 Shifts None Awakenings 24 Stage Changes 107 Number of REM periods 8 REM 53.5 16 REM Latency 56.5 min. NREM 288.0 84 Body Position Analysis Supine Right Left Side Prone Vertical Total Sleep Time (min.) 50.1 83.0 210.5 293.53 0.0 0.0 Total Sleep Time (%) 14% 24% 62% 86 0% N/A% Total Sleep Time REM (min.) 14.0 14.0 25.5 None 0.0 0.0 Total Sleep Time NREM (min.) 34.0 69.0 185.0 None 0.0 0.0 Intermittent Wake (min.) 2.2 5.9 43.0 None 0.0 0.0 Total Sleep Period (%) 13% None None None None None Arousals Myoclonus (PLM) * Events Count Index Events Count Index Spontaneous 25 4 Events Awake (PLMW) 36 42.4 Respiratory 25 5.3 Events Asleep w/ Arousal (PLMA) 18 3.2 PLM 18 3 Events Asleep w/o Arousal (PLMS) 106 18.6 Snoring 3 1 Total Asleep 124 21.8 Total 71 12 Total 160 24 Respiratory Analysis * CA OA MA CH H RERA Total Count 19 11 4 0 17 6 51 Index 3.3 1.9 0.7 0 3.0 1 10.0 Mean Duration 14.7 22.6 29.8 0.00 25.3 25.8 21.6 Longest Duration 23.7 33.6 34.1 0.00 34.1 36.0 36.0 Respiratory Event Summary Total Supine ~Supine Right Left Prone REM NREM Apneas Count 34 25 9 6 3 N/A 4 30 Index 6.0 31 2 4.3 0.9 N/A 4 6 Hypopneas (4% Desat) Count 17 7 10 1 9 N/A 2 15 Index 3.0 8.8 2 0.7 2.6 N/A 2.2 3.1 Apneas & All Hypopneas Count 51 32 19 7 12 N/A 6 45 Index 9.0 40 4 5 3 N/A 6.7 9.4 Respiratory Events (Commodity [employer]ker+All Hyp+RERA) Count 51 32 25 9 16 N/A 6 45 Index 10.0 40 5 6.5 4.6 N/A 6.7 10.6 Respiratory Related Arousal Count 25 32 13 3 10 N/A 4 26 Index 5.3 21 3 2 3 N/A 4 5 Snoring Analysis Supine Right Left Prone REM NREM Total Snore duration 19.8 min Snores count 63 92 597 N/A 20 732 752 Snore mean duration 1.6 Sec Snores index 79 66 170 N/A 22.4 152.5 132.1 TST with snoring (%) 5.8% Desaturation Event Summary: Minimum %SpO2 Event Count Mean/Min/Max Duration(sec.) Desaturation Index % Time In Bed > 90 49 29.5 / 9.3 / 58.0 7.7 99.2 86 - 90 0 N/A 0.0 0.7 81 - 85 0 N/A 0.0 0.0 76 - 80 0 N/A 0.0 0.0 71 - 75 0 N/A 0.0 0.0 66 - 70 0 N/A 0.0 0.0 61 - 65 0 N/A 0.0 0.0 56 - 60 0 N/A 0.0 0.0 51 - 55 0 N/A 0.0 0.0 < 50 0 N/A 0.0 0.0 Total REM NREM Awake <50% 0.0 min. 0.0 min. 0.0 min. 0.0 min. 51 - 60% 0.0 min. 0.0 min. 0.0 min. 0.0 min. 61 - 70% 0.0 min. 0.0 min. 0.0 min. 0.0 min. 71 - 80% 0.1 min. 0.0 min. 0.0 min. 0.1 min. 81 - 90% 2.9 min. 0.5 min. 2.2 min. 0.2 min. 91 - 100% 380.3 min. 53.0 min. 285.1 min. 42.3 min. Average 94 95 94 95 Minimum SpO2 77 87 85 77 Desaturation Event Index 7.5 3.4 7.9 9.4 # Desat. Events below 89% 6 N/A 6 N/A Time(%) with Saturation below 89% 0.4 0.1 0.3 0.0 Time(min.) with Saturation below 89% 1.4 0.2 1.0 0.1 Heart Rate Analysis Min (bpm) Max (bpm) Average (bpm) Awake 45 281 57 NREM 43 68 50 REM 42 64 50 Overall 42 68 50 Supplemental O2 Values Minimum O2 level: None Value Start Time End Time Bench Boring Machine Operator Comments Mr. Stallings slept in the right, left, and supine positions. No cardiac arrhythmias were noted. PLMs were noted. No bruxism noted. CPAP was initiated at +4 CMH2O and up-titrated to a level of +13 CMH2O, Cflex 3. He did have some central apneas while supine. A Simplus full face mask size medium from [employer] was used during titration. He awoke to use the restroom one time during the night. Mr. Stallings stated that he slept ok. The final report will be interpreted and signed by a sleep physician. The completed physician report will then be placed in the patient medical record. CPAP REPORT Therapy Detail Time / Page # Comment CPAP 4 cm H2O Full Face Mask Flex Pressure Relief Humidifier on 10:57:36 PM / pg. 171 CPAP 6 cm H2O Full Face Mask Flex Pressure Relief Humidifier on 10:58:20 PM / pg. 173 INCREASED AT HIS REQUEST FOR MORE AIR CPAP 7 cm H2O Full Face Mask Flex Pressure Relief Humidifier on 11:43:55 PM / pg. 264 INCREASED FOR SNORING AND HYPOPNEAS CPAP 8 cm H2O Full Face Mask Flex Pressure Relief Humidifier on 12:37:04 AM / pg. 370 INCREASED FOR LOUD SNORING AND MORE HYPOPNEAS CPAP 10 cm H2O Full Face Mask Flex Pressure Relief Humidifier on 3:18:58 AM / pg. 694 INCREASED FOR APNEAS CPAP 11 cm H2O Full Face Mask Flex Pressure Relief Humidifier on 4:50:18 AM / pg. 877 INCREASED FOR RERAS AND APNEA CPAP 13 cm H2O Full Face Mask Flex Pressure Relief Humidifier on 5:09:50 AM / pg. 916 INCREASED FOR APNEAS AND HYPOPNEAS WHILE SUPINE Therapy Event: Therapy (cm H20) 4 6 7 8 10 11 13 Total Time at Pressure (min.) 0.1 45.6 53.1 161.9 91.3 19.5 20.9 TST at Pressure (min.) 0.0 35.2 44.6 137.9 85.8 19.0 18.9 # Periods 1 1 1 1 1 1 1 Sleep Onset (min.) N/A 6.4 0.0 0.0 0.0 0.0 0.0 REM Onset (min.) N/A N/A 17.3 26.2 17.3 8.0 0.0 Sleep Efficiency % 0 77 84 85 94 97 90 Wakefulness (%) 100.0 22.9 16.0 14.8 6.0 2.6 9.6 Wakefulness (min.) 0.1 10.4 8.5 24.0 5.5 0.5 2.0 NREM 1 (%) 0.0 11.0 10.3 11.9 15.7 10.2 14.3 NREM 1 (min.) 0.0 5.0 5.5 19.2 14.3 2.0 3.0 NREM 2 (%) 0.0 40.6 63.6 44.9 63.0 53.6 40.6 NREM 2 (min.) 0.0 18.5 33.8 72.7 57.5 10.5 8.5 NREM 3 (%) 0.0 25.6 6.3 13.9 0.0 0.0 0.0 NREM 3 (min.) 0.0 11.7 3.3 22.5 0.0 0.0 0.0 REM (%) 0.0 0.0 3.8 14.5 15.3 33.6 35.5 REM (min.) 0.0 0.0 2.0 23.5 14.0 6.6 7.4 # Arousals N/A 6 10 27 17 7 4 Arousal Index N/A 10.2 13.4 11.7 11.9 22.1 12.7 # Snore N/A 259 262 101 99 12 19 Snore Index N/A 442.0 352.1 43.9 69.2 37.9 60.2 AHI N/A 8.5 6.7 4.4 10.5 31.5 19.0 AHI Supine N/A N/A N/A 66.6 79.5 35.9 19.0 AHI Non-Supine N/A 8.5 6.7 0.9 4.6 15.0 N/A NREM AHI N/A 8.5 7.0 5.2 11.7 28.9 26.1 REM AHI N/A N/A 0.0 0.0 4.3 36.6 8.1 RDI N/A 10.2 9.4 4.8 11.9 31.5 19.0 # Obstructive N/A 0 0 5 3 3 0 # Central Ap N/A 2 0 1 11 1 4 # Mixed N/A 0 0 2 1 1 0 # Hypopneas N/A 3 5 2 0 5 2 RERAS N/A 1 2 1 2 0 0 Total Respiratory Events N/A 6 7 11 17 10 6 Time Below SpO2 89.00% (min.) 0.0 0.0 0.0 0.7 0.3 0.2 0.0 Mean NREM SpO2 (%) N/A 94 95 94 94 95 95 Mean REM SpO2 (%) N/A N/A 94 95 94 94 95 Mean Sleep SpO2 (%) N/A 94 95 94 94 95 95 Min NREM SpO2 (%) N/A 91 93 85 85 89 92 Min REM SpO2 (%) N/A N/A 93 93 92 87 92 Position Supine (min.) 0.0 0.0 0.0 7.2 6.8 15.0 18.9 Position Non-supine (min.) 0.0 35.2 44.6 130.7 79.0 4.0 0.0 LM Index Sleep N/A 25.6 12.1 20.9 30.1 22.1 6.3 LM Index NREM N/A 25.6 12.7 24.1 35.9 24.1 5.2 LM Index REM N/A N/A 0.0 5.1 0.0 18.3 8.1 Mean Heart Rate (bpm) N/A 49 51 52 49 47 46 Min Heart Rate (bpm) N/A 46 45 47 44 42 43
--- NOTE | 2017-12-26 21:56 | POLYSOMNOGRAPH REPORT ---
CLINICAL DATA: The patient is a 67-year-old male with complaints of snoring and fatigue. He has a history of hypertension and atrial fibrillation. A sleep study was done on 11/27/2017 showing moderate sleep apnea with an apnea hypopnea index of 16.5. He is referred back to the sleep disorder center for a titration study. SLEEP ARCHITECTURE: The total sleep period was 386 minutes. The total sleep time was 341.5 minutes. The sleep efficiency was mildly reduced to 87%. The sleep latency was normal at 6.5 minutes. Wake after sleep onset was mildly increased to 44.5 minutes. The REM latency was 56.5 minutes. There were 3 REM periods during the night. Sleep consisted of stage N1 14%, stage N2 59%, stage N3 11%, stage REM 16%. AROUSAL DATA: The patient had 71 arousals including 25 spontaneous, 25 respiratory, 18 PLM, and 3 snoring arousals. The arousal index was 12. PLM DATA: The patient had 124 periodic limb movements for a PLM index of 21.8. There were 18 arousals associated with limb movements for a PLM arousal index of 3.2. EKG: The underlying cardiac rhythm was normal sinus. No arrhythmias were noted. The cardiac rates ranged from 42 up to 68 beats per minute with an average of 50 beats per minute. RESPIRATORY DATA: The patient's respiratory events were treated with nasal CPAP. There was a total of 51 respiratory events including 19 central apneas, 11 obstructive apneas, 4 mixed apneas, and 17 hypopneas. The longest apnea was 34.1 seconds. The mean duration of the hypopneas was 25.3 seconds. There were 6 RERAs. The apnea hypopnea index was 9.0 events per hour. OXIMETRY DATA: The average saturation for the night was 94%. The lowest recorded saturation was 77% and it was clearly artifact. The actual minimum saturation was 88%. There was a total of 1.4 minutes with saturations less than 89%. CLINICAL IMPLEMENTATION SPECIALIST COMMENTS: Mr. Stallings slept in the right, left, and supine positions. No cardiac arrhythmias noted. PLMs noted. No bruxism noted. CPAP was initiated at 4 cm and up titrated to a level of 13 cm with C-Flex 3. He did have some central apneas while supine. A Simplus full face mask size medium from [employer] was used. He awakened to use the restroom one time during the night. IMPRESSION: 1. Obstructive sleep apnea. 2. Complex sleep apnea. COMMENTS: The patient tolerated CPAP very well. He did develop some central apneas. Thus, an optimum titration level could not be achieved. His sleep efficiency was near normal. In the post-sleep questionnaire, the patient indicated he had no problems with CPAP and in general he felt that he slept better. A trial of auto CPAP is advised. RECOMMENDATIONS: 1. It is advised that the patient be started on auto CPAP with a minimum of 6 and a maximum of 16. 2. He can utilize the full face mask from [employer] which was a Simplus size medium. 3. The patient needs a followup evaluation between day 31 and day 90. 4. Weight loss is advised in light of the elevation of body mass index of 30.41.
== END | disposition home or self-care (01) ==
LOC: C.NEUR 21:00
PROVIDERS: ATTEND Internal Medicine Pulmonary Disease
DX: G47.33 Obstructive sleep apnea (adult) (pediatric) (principal)

== ENCOUNTER → 2017-12-24 | Outpatient (CLI) | payer OTHER ==
[2017-12-24 10:07] LABS: BASO % 0.2 %; BASO ABS # 0.01 K/uL (0-0.2); EOS % 5.2 %; EOS ABS # 0.27 K/uL (0-0.5); HEMATOCRIT 40.2 % (42-52); HEMOGLOBIN 12.9 g/dL (14.0-18.0); IG# 0.01 K/uL (0.00-0.02); LYMPH % 17.7 %; LYMPH ABS # 0.92 K/uL (1.2-3.4); MEAN CELL VOLUME 85.9 fL (80-100); MEAN CORPUSCULAR HEMOGLOBIN 27.6 pg (25-34); MEAN CORPUSCULAR HGB CONC 32.1 g/dl (32-36); MEAN PLATELET VOLUME 10.8 fL (7.4-10.4); MONO % 12.5 %; MONO ABS # 0.65 K/uL (0.11-0.59); NEUT % 64.2 %; NEUT ABS # 3.35 K/uL (1.4-6.5); PLATELET COUNT 249 K/uL (130-400); RED CELL DISTRIBUTION WIDTH CV 15.5 % (11.5-14.5); RED CELL DISTRIBUTION WIDTH SD 48.7 fL (36.4-46.3); WHITE BLOOD COUNT 5.21 K/uL (4.8-10.8)
[2017-12-24 10:40] LABS: HEMOGLOBIN A1C 6.1 % (4.5-5.6)
[2017-12-24 10:43] LABS: BLOOD UREA NITROGEN 17 mg/dl (7-18); CALCIUM 8.6 mg/dl (8.5-10.1); CARBON DIOXIDE 31 mmol/L (21-32); CREATININE 1.01 mg/dl (0.60-1.40); GLUCOSE 96 mg/dl (70-99); POTASSIUM 3.2 mmol/L (3.5-5.1); SODIUM 139 mmol/L (136-145)
== END | disposition home or self-care (01) ==
LOC: C.LAB1850 09:02
PROVIDERS: ATTEND Nurse Practitioner Adult Health
DX: R73.9 Hyperglycemia, unspecified (principal); D64.9 Anemia, unspecified; E78.5 Hyperlipidemia, unspecified

== ENCOUNTER 2020-09-05 00:49 | Inpatient (IN) ==
[2020-09-05] MEDS ORDERED: hydrALAZINE HCL 20 MG/ML VIAL IV STA (01:27)
[2020-09-05 01:39] LABS: Basophils # (auto) 0.01 K/uL (0-0.2); Basophils % (auto) 0.2 %; Eosinophils # (auto) 0.31 K/uL (0-0.5); Eosinophils % (auto) 6.4 %; Hematocrit (blood only) 37.4 % (42-52); Hemoglobin 12.5 g/dL (14.0-18.0); Immature Granulocytes # (auto) 0.02 K/uL (0.00-0.02); Immature Granulocytes % (auto) 0.4 %; Lymphocytes # (auto) 0.96 K/uL (1.2-3.4); Lymphocytes % (auto) 19.9 %; Mean Corpuscular Hemoglobin 28.9 pg (25-34); Mean Corpuscular Hgb Conc 33.4 g/dL (32-36); Mean Corpuscular Volume 86.4 fL (80-100); Mean Platelet Volume 10.7 fL (7.4-10.4); Monocytes # (auto) 0.46 K/uL (0.11-0.59); Monocytes % (auto) 9.5 %; Neutrophils # (auto) 3.06 K/uL (1.4-6.5); Neutrophils % (auto) 63.6 %; Platelet Count 223 K/uL (130-400); RDW Coefficient of Variation 14.9 % (11.5-14.5); RDW Standard Deviation 47.3 fL (36.4-46.3); Red Blood Count 4.33 M/uL (4.7-6.1); White Blood Count 4.82 K/uL (4.8-10.8)
[2020-09-05 01:49] LABS: Prothrombin Time 10.1 Seconds (9.0-12.0)
[2020-09-05 02:02] LABS: Alanine Aminotransferase 34 U/L (12-78); Albumin Level 3.7 gm/dl (3.4-5.0); Aspartate Aminotransferase 22 U/L (15-37); BUN Creatinine Ratio 21.4 (10-20); Blood Urea Nitrogen 21 mg/dl (7-18); Calcium 9.1 mg/dl (8.5-10.1); Carbon Dioxide 34 mmol/L (21-32); Chloride 103 mmol/L (98-107); Creatinine Clr Calc Pharmacy 80.5 ml/min; Est GFR (African American) 89.7; Est GFR (Non-African American) 77.4; Glucose 111 mg/dl (70-99); Magnesium 2.3 mg/dl (1.8-2.4); Sodium 142 mmol/L (136-145)
[2020-09-05 02:07] LABS: Albumin Globulin Ratio 0.9 (0.9-2); Alkaline Phosphatase 147 U/L (45-117); Bilirubin,Total 0.3 mg/dl (0.2-1); Globulin 4.1 gm/dl (2.5-4.0); Total Protein 7.8 gm/dl (6.4-8.2); Troponin I < 0.015 ng/ml (0-0.045)
--- NOTE | 2020-09-05 02:40 | Emergency Department Note ---
History of Present Illness General Chief complaint: Hypertension Stated complaint: BLOOD PRESSURE IS RICK Time Seen by Provider: 09/05/20 01:09 Source: patient Mode of arrival: ambulatory Limitations: no limitations History of Present Illness Provider complaint: Hypertension This is a 69-year-old male who presents with concerns for hypertension. Patient states he has had ongoing issues with blood pressure ever since [place] time. He follows with Dr. Carbone of nephrology due to only having [address] Carbone been managing his hypertension. Patient states he was most recently started on Cardura, and the dose was just doubled this past week. He states he checked his blood pressure this evening and saw 160s systolically. Following attending his granddaughters birthday celebration he returned home and checked it again and it was up into the 180s. Due to concern for worsening blood pressure, they prese nted to the emergency room. On arrival here patient's blood pressure was markedly elevated over 200 systolic. Patient denies any evolving symptoms, does state he feels it is slightly difficult for him to enunciate clearly, however family at bedside confirms no overt slurred speech. He denies headache, vision changes, dizziness, chest pain, abdominal pain, nausea or vomiting. Patient does have LE edema. States this does happen intermittently, typically right greater than the left. No change in bowel or bladder function. No recent illness or sick contacts. Patient is anticoagulated due to history of atrial fibrillation and does follow with cardiology. Pt seen during a time of high acuity and national emergency pandemic while wearing PPE. Home Medications Medication Instructions Recorded Confirmed Type multivitamin [Multiple Vitamins] 1 tab PO DAILY 08/11/18 09/05/20 History omega 6-eux-rlh-fish oil [Fish Oil] 1 cap PO DAILY 08/11/18 09/05/20 History flecainide 100 mg tablet 150 mg PO .COMPLEX #225 tab 12/17/19 09/05/20 Rx metoprolol succinate 25 mg 12.5 mg PO DAILY #45 tab 12/17/19 09/05/20 Rx tablet,extended release 24 hr atorvastatin 40 mg tablet 40 mg PO QPM #90 ea 12/18/19 09/05/20 Rx apixaban 5 mg tablet 5 mg PO BID #180 tab 01/21/20 09/05/20 Rx potassium chloride 10 mEq 10 meq PO DAILY #90 cap 08/17/20 09/05/20 Rx capsule,extended release doxazosin 1 mg tablet 1 mg PO BID #180 tab 08/29/20 09/05/20 Rx amoxicillin 500 mg capsule 500 mg PO BID #10 cap 09/02/20 09/05/20 Rx hydrochlorothiazide 12.5 mg PO QPM 09/05/20 09/05/20 History hydrochlorothiazide 25 mg PO QAM 09/05/20 09/05/20 History losartan 100 mg PO DAILY 09/05/20 09/05/20 History Allergies Allergy/AdvReac Type Severity Reaction Status Date / Time eplerenone AdvReac Intermediate gynecomasti Verified 09/05/20 09:23 a amlodipine AdvReac Mild Edema Verified 09/05/20 09:23 lower extrimities zoster vaccine live AdvReac Unknown TIRED, Verified 09/05/20 09:23 SHIVERS AT NIGHT, WEAK Past Med/Surg History Medical History Anticoagulant long-term use Cataract Right Eye Difficult intubation 05/01/16 - Glidescope #3, ETT #7.5. "Difficult intubation with glidescope. 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 Hypertension Paroxysmal atrial fibrillation Renal cell carcinoma of left kidney Solitary right kidney Surgical History H/O left nephrectomy 05/01/16 History of colonoscopy History of hernia repair Bilateral inguinal History of left cataract surgery History of tonsillectomy Family History Mother Breast cancer Ovarian cancer Diabetes Hypertension Father Hypertension Brother Hypertension Social History Smoking Status: Former smoker Second Hand Exposure: No; Hx Alcohol Use: No Hx Substance Use: No Preferred Language: [place] Communication Ability: Effective Director Of Strategic Initiatives Required: No Beliefs That Will Affect Care: None Current Living Situation: Spouse Feels Safe at Home: Yes Seatbelt Use: always Assistive Devices: CPAP and Glasses Review of Systems See HPI for pertinent positives & negatives. and A total of 10 systems reviewed and were otherwise negative Physical Exam Vital Signs Vital Signs - 24 hr 09/05/20 00:50 09/05/20 01:06 09/05/20 01:17 Temperature 36.4 C L Temperature Source Temporal Artery Scan Pulse Rate 57 L 62 61 Pulse Rate from SpO2 Sensor Respiratory Rate 18 20 21 Respiratory Effort / Characteristics Non-Labored Spontaneous Respiratory Depth Normal Respiratory Pattern Regular Blood Pressure 233/93 H 243/103 H Blood Pressure [Left Arm] Blood Pressure Mean 139 149 Blood Pressure Mean [Left Arm] Blood Pressure Position Sitting Pulse Oximetry 98 Oxygen Delivery Method Room Air Sepsis Recent Fever Within 48 Hours No Sepsis New/Unexplained Change in Mental Status No Sepsis Action Taken by Nursing No Action Required 09/05/20 01:24 09/05/20 01:30 09/05/20 01:46 Temperature Temperature Source Pulse Rate 70 63 62 Pulse Rate from SpO2 Sensor Respiratory Rate 24 24 20 Respiratory Effort / Characteristics Respiratory Depth Respiratory Pattern Blood Pressure 225/104 H 214/92 H 182/89 H Blood Pressure [Left Arm] Blood Pressure Mean 144 132 120 Blood Pressure Mean [Left Arm] Blood Pressure Position Pulse Oximetry Oxygen Delivery Method Sepsis Recent Fever Within 48 Hours Sepsis New/Unexplained Change in Mental Status Sepsis Action Taken by Nursing 09/05/20 01:48 09/05/20 01:50 09/05/20 02:22 Temperature Temperature Source Pulse Rate 63 66 Pulse Rate from SpO2 Sensor Respiratory Rate 20 19 Respiratory Effort / Characteristics Non-Labored Respiratory Depth Normal Respiratory Pattern Regular Blood Pressure 176/86 H 197/88 H Blood Pressure [Left Arm] 176/86 H Blood Pressure Mean 116 124 Blood Pressure Mean [Left Arm] 116 Blood Pressure Position Pulse Oximetry 95 Oxygen Delivery Method Room Air Sepsis Recent Fever Within 48 Hours Sepsis New/Unexplained Change in Mental Status Sepsis Action Taken by Nursing 09/05/20 02:25 09/05/20 02:30 09/05/20 02:35 Temperature Temperature Source Pulse Rate Pulse Rate from SpO2 Sensor Respiratory Rate Respiratory Effort / Characteristics Respiratory Depth Respiratory Pattern Blood Pressure 177/83 H 179/79 H 178/81 H Blood Pressure [Left Arm] Blood Pressure Mean 114 112 113 Blood Pressure Mean [Left Arm] Blood Pressure Position Pulse Oximetry Oxygen Delivery Method Sepsis Recent Fever Within 48 Hours Sepsis New/Unexplained Change in Mental Status Sepsis Action Taken by Nursing 09/05/20 02:40 09/05/20 02:47 09/05/20 02:50 Temperature Temperature Source Pulse Rate Pulse Rate from SpO2 Sensor Respiratory Rate Respiratory Effort / Characteristics Respiratory Depth Respiratory Pattern Blood Pressure 185/82 H 198/93 H 184/87 H Blood Pressure [Left Arm] Blood Pressure Mean 116 128 119 Blood Pressure Mean [Left Arm] Blood Pressure Position Pulse Oximetry Oxygen Delivery Method Sepsis Recent Fever Within 48 Hours Sepsis New/Unexplained Change in Mental Status Sepsis Action Taken by Nursing 09/05/20 02:55 09/05/20 03:00 09/05/20 03:05 Temperature Temperature Source Pulse Rate Pulse Rate from SpO2 Sensor Respiratory Rate Respiratory Effort / Characteristics Respiratory Depth Respiratory Pattern Blood Pressure 177/81 H 177/82 H 180/90 H Blood Pressure [Left Arm] Blood Pressure Mean 113 113 120 Blood Pressure Mean [Left Arm] Blood Pressure Position Pulse Oximetry Oxygen Delivery Method Sepsis Recent Fever Within 48 Hours Sepsis New/Unexplained Change in Mental Status Sepsis Action Taken by Nursing 09/05/20 03:10 09/05/20 03:15 09/05/20 03:20 Temperature Temperature Source Pulse Rate Pulse Rate from SpO2 Sensor Respiratory Rate Respiratory Effort / Characteristics Respiratory Depth Respiratory Pattern Blood Pressure 181/82 H 182/84 H 181/87 H Blood Pressure [Left Arm] Blood Pressure Mean 115 116 118 Blood Pressure Mean [Left Arm] Blood Pressure Position Pulse Oximetry Oxygen Delivery Method Sepsis Recent Fever Within 48 Hours Sepsis New/Unexplained Change in Mental Status Sepsis Action Taken by Nursing 09/05/20 03:35 09/05/20 03:45 09/05/20 04:00 Temperature Temperature Source Pulse Rate 65 60 65 Pulse Rate from SpO2 Sensor 65 60 Respiratory Rate 20 17 22 Respiratory Effort / Characteristics Respiratory Depth Respiratory Pattern Blood Pressure 177/84 H Blood Pressure [Left Arm] Blood Pressure Mean 115 Blood Pressure Mean [Left Arm] Blood Pressure Position Pulse Oximetry 93 94 Oxygen Delivery Method Sepsis Recent Fever Within 48 Hours Sepsis New/Unexplained Change in Mental Status Sepsis Action Taken by Nursing 09/05/20 04:18 09/05/20 04:29 09/05/20 04:30 Temperature Temperature Source Pulse Rate 71 73 73 Pulse Rate from SpO2 Sensor Respiratory Rate 22 19 18 Respiratory Effort / Characteristics Respiratory Depth Respiratory Pattern Blood Pressure 200/96 H 165/122 H 182/85 H Blood Pressure [Left Arm] Blood Pressure Mean 130 136 117 Blood Pressure Mean [Left Arm] Blood Pressure Position Pulse Oximetry Oxygen Delivery Method Sepsis Recent Fever Within 48 Hours Sepsis New/Unexplained Change in Mental Status Sepsis Action Taken by Nursing 09/05/20 04:41 09/05/20 04:45 09/05/20 05:06 Temperature Temperature Source Pulse Rate 83 77 82 Pulse Rate from SpO2 Sensor Respiratory Rate 20 25 H 15 Respiratory Effort / Characteristics Respiratory Depth Respiratory Pattern Blood Pressure 200/91 H Blood Pressure [Left Arm] Blood Pressure Mean 127 Blood Pressure Mean [Left Arm] Blood Pressure Position Pulse Oximetry Oxygen Delivery Method Sepsis Recent Fever Within 48 Hours Sepsis New/Unexplained Change in Mental Status Sepsis Action Taken by Nursing 09/05/20 05:15 09/05/20 05:25 09/05/20 05:30 Temperature Temperature Source Pulse Rate 72 77 77 Pulse Rate from SpO2 Sensor Respiratory Rate 18 22 18 Respiratory Effort / Characteristics Respiratory Depth Respiratory Pattern Blood Pressure 181/95 H 169/73 H Blood Pressure [Left Arm] Blood Pressure Mean 123 105 Blood Pressure Mean [Left Arm] Blood Pressure Position Pulse Oximetry Oxygen Delivery Method Sepsis Recent Fever Within 48 Hours Sepsis New/Unexplained Change in Mental Status Sepsis Action Taken by Nursing 09/05/20 05:45 09/05/20 06:00 09/05/20 06:11 Temperature Temperature Source Pulse Rate 76 79 75 Pulse Rate from SpO2 Sensor Respiratory Rate 16 20 24 Respiratory Effort / Characteristics Respiratory Depth Respiratory Pattern Blood Pressure 169/95 H 176/84 H Blood Pressure [Left Arm] Blood Pressure Mean 119 114 Blood Pressure Mean [Left Arm] Blood Pressure Position Pulse Oximetry Oxygen Delivery Method Sepsis Recent Fever Within 48 Hours Sepsis New/Unexplained Change in Mental Status Sepsis Action Taken by Nursing 09/05/20 06:15 09/05/20 06:30 09/05/20 07:00 Temperature Temperature Source Pulse Rate 70 73 68 Pulse Rate from SpO2 Sensor Respiratory Rate 17 16 19 Respiratory Effort / Characteristics Respiratory Depth Respiratory Pattern Blood Pressure 146/72 H 135/68 Blood Pressure [Left Arm] Blood Pressure Mean 96 90 Blood Pressure Mean [Left Arm] Blood Pressure Position Pulse Oximetry 94 Oxygen Delivery Method Sepsis Recent Fever Within 48 Hours Sepsis New/Unexplained Change in Mental Status Sepsis Action Taken by Nursing GENERAL: alert, well appearing, well nourished, no distress, non-toxic EYE EXAM: normal conjunctiva, PERRL and EOM's grossly intact OROPHARYNX: no exudate, no erythema, lips, buccal mucosa, and tongue normal and mucous membranes are moist NECK: supple, no nuchal rigidity, no adenopathy, non-tender LUNGS: Clear to auscultation. Normal chest wall mechanics, no w/r/r HEART: no murmurs, S1 normal and S2 normal ABDOMEN: abdomen soft, non-tender, normo-active bowel sounds, no masses, no rebound or guarding. BACK: Back is symmetrical on inspection and there is no deformity, no midline tenderness, no CVA tenderness. SKIN: no rashes and no bruising UPPER EXTREMITIES: upper extremities are grossly normal. FROM, nml pulses b/l. LOWER EXTREMITIES: No pitting edema. FROM, nml pulses b/l. NEURO EXAM: Normal sensorium, cranial nerves II-XII grossly intact, normal speech, no gross weakness of arms, no gross weakness of legs. Gross sensation intact. No ataxia. Course Course 0320: Pt updated on results. 347: Discussed disposition. BP trending up again. 0: Discussed with Dr. Keller. Administered Medications Amiloride HCl (Amiloride Hcl 5 Mg Tab) 5 mg PO BID MARYAM Stop: 10/05/20 10:59 Last Admin: 09/06/20 08:15 Dose: 5 mg Documented by: [id number] Admin: 09/05/20 20:47 Dose: 5 mg Documented by: [id number] Admin: 09/05/20 11:54 Dose: Not Given Documented by: [id number] Amoxicillin (Amoxicillin 500 Mg Cap) 500 mg PO BID MARYAM Stop: 09/15/20 09:09 Last Admin: 09/06/20 08:15 Dose: 500 mg Documented by: [id number] Admin: 09/05/20 20:47 Dose: 500 mg Documented by: [id number] Admin: 09/05/20 10:24 Dose: 500 mg Documented by: [id number] Apixaban (Apixaban 5 Mg Tablet) 5 mg PO BID MARYAM Stop: 10/05/20 09:09 Last Admin: 09/06/20 08:16 Dose: 5 mg Documented by: [id number] Admin: 09/05/20 20:49 Dose: 5 mg Documented by: [id number] Admin: 09/05/20 10:24 Dose: 5 mg Documented by: [id number] Atorvastatin Calcium (Atorvastatin 40 Mg Tab) 40 mg PO QPM MARYAM Stop: 10/05/20 20:59 Last Admin: 09/05/20 20:49 Dose: 40 mg Documented by: [id number] Chlorthalidone (Chlorthalidone 25 Mg Tab) 25 mg PO QAM [facility] Stop: 10/05/20 10:44 Last Admin: 09/06/20 08:15 Dose: 25 mg Documented by: [id number] Admin: 09/05/20 12:40 Dose: 25 mg Documented by: [id number] Flecainide Acetate (Flecainide Acetate 100 Mg Tablet) 100 mg PO QPM MARYAM Stop: 10/05/20 20:59 Last Admin: 09/05/20 20:49 Dose: 100 mg Documented by: [id number] Flecainide Acetate (Flecainide Acetate 100 Mg Tablet) 150 mg PO QAM [facility] Stop: 10/05/20 09:44 Last Admin: 09/06/20 08:16 Dose: 150 mg Documented by: [id number] Admin: 09/05/20 10:22 Dose: 150 mg Documented by: [id number] Losartan Potassium (Losartan Potassium 50 Mg Tab) 100 mg PO DAILY [facility] Stop: 10/05/20 09:09 Last Admin: 09/06/20 08:15 Dose: 100 mg Documented by: [id number] Admin: 09/05/20 10:24 Dose: 100 mg Documented by: [id number] Metoprolol Succinate (Metoprolol Succ 25mg Ext Rel Tab) 12.5 mg PO DAILY [facility] Stop: 10/05/20 09:09 Last Admin: 09/06/20 08:16 Dose: 12.5 mg Documented by: [id number] Admin: 09/05/20 10:23 Dose: 12.5 mg Documented by: [id number] Discontinued Medications Doxazosin Mesylate (Doxazosin Mesylate 1 Mg Tab) 1 mg PO BID [facility] Stop: 10/05/20 09:09 Last Admin: 09/05/20 10:24 Dose: 1 mg Documented by: [id number] Hydralazine HCl (Hydralazine Hcl 20 Mg/Ml Vial) 10 mg IV NOW STA Stop: 09/05/20 01:28 Last Admin: 09/05/20 01:47 Dose: 10 mg Documented by: [id number] Hydralazine HCl (Hydralazine Hcl 20 Mg/Ml Vial) 5 mg IV NOW ONE Stop: 09/05/20 04:04 Last Admin: 09/05/20 04:06 Dose: 5 mg Documented by: [id number] Hydrochlorothiazide (Hydrochlorothiazide 25 Mg Tab) 25 mg PO QAM MARYAM Stop: 10/05/20 09:09 Last Admin: 09/05/20 10:24 Dose: 25 mg Documented by: [id number] Sodium Chloride (Nss) 500 mls @ 999 mls/hr IV .Q31M ONE Stop: 09/05/20 03:44 Last Infusion: 09/05/20 04:46 Dose: 0 mls/hr Documented by: [id number] Admin: 09/05/20 04:04 Dose: 999 mls/hr Documented by: [id number] Magnesium Sulfate/Dextrose (Magnesium Sulfate / D5w) 1 gm in 100 mls @ 50 mls/h r IV ONE ONE Stop: 09/05/20 11:09 Last Infusion: 09/05/20 12:23 Dose: 0 mls/hr Documented by: [id number] Admin: 09/05/20 10:22 Dose: 50 mls/hr Documented by: [id number] Ioversol (Optiray 300 100ml) 86 ml IV ONCE ONE Stop: 09/06/20 10:24 Last Admin: 09/06/20 10:23 Dose: 86 ml Documented by: [id number] Potassium Chloride (Potassium Chloride Crtab 20 Meq Tabcr) 40 meq PO NOW STA Stop: 09/05/20 03:15 Last Admin: 09/05/20 04:01 Dose: 40 meq Documented by: [id number] Potassium Chloride (Potassium Chloride 10 Meq Tabcr) 40 meq PO NOW STA Stop: 09/05/20 12:51 Last Admin: 09/05/20 13:09 Dose: 40 meq Documented by: [id number] Medical Decision Making Differential Diagnosis Hypertensive emergency, ICH, CVA, hypertensive urgency, SAM, dissection, acs, medication reaction, as well as others were considered. Medical Records Attestation: I reviewed the patient's medical records. Home Medications Current Medication List: was personally reviewed by me Laboratory Data Attestation: I reviewed the patient's lab results. Result diagrams: 09/06/20 06:55 09/06/20 06:55 Lab Results 09/05/20 09/05/20 09/05/20 Range/Units 01:05 01:11 01:11 WBC 4.82 (4.8-10.8) K/uL RBC 4.33 L (4.7-6.1) M/uL Hgb 12.5 L (14.0-18.0) g/dL Hct 37.4 L (42-52) % MCV 86.4 (80-100) fL MCH 28.9 (25-34) pg MCHC 33.4 (32-36) g/dL RDW Std Deviation 47.3 H (36.4-46.3) fL RDW Coeff of Jessica 14.9 H (11.5-14.5) % Plt Count 223 (130-400) K/uL MPV 10.7 H (7.4-10.4) fL Immature Gran % (Auto) 0.4 % Neut % (Auto) 63.6 % Lymph % (Auto) 19.9 % [place] % (Auto) 9.5 % Eos % (Auto) 6.4 % Baso % (Auto) 0.2 % Neut # (Auto) 3.06 (1.4-6.5) K/uL Lymph # (Auto) 0.96 L (1.2-3.4) K/uL [place] # (Auto) 0.46 (0.11-0.59) K/uL Eos # (Auto) 0.31 (0-0.5) K/uL Baso # (Auto) 0.01 (0-0.2) K/uL Immature Gran # (Auto) 0.02 (0.00-0.02) K/uL PT (9.0-12.0) Seconds INR (0.9-1.1) Sodium 142 (136-145) mmol/L Potassium 3.0 L (3.5-5.1) mmol/L Chloride 103 (98-107) mmol/L Carbon Dioxide 34 H (21-32) mmol/L Anion Gap 5.0 (3-11) BUN 21 H (7-18) mg/dl Creatinine 0.99 (0.6-1.4) mg/dl Est Cr Clr Drug Dosing 80.5 ml/min Est GFR ( Amer) 89.7 Est GFR (Non-Af Amer) 77.4 BUN/Creatinine Ratio 21.4 H (10-20) Glucose 111 H (70-99) mg/dl Calcium 9.1 (8.5-10.1) mg/dl Magnesium 2.3 (1.8-2.4) mg/dl Total Bilirubin 0.3 (0.2-1) mg/dl AST 22 (15-37) U/L ALT 34 (12-78) U/L Alkaline Phosphatase 147 H (45-117) U/L Troponin I < 0.015 (0-0.045) ng/ml Total Protein 7.8 (6.4-8.2) gm/dl Albumin 3.7 (3.4-5.0) gm/dl Globulin 4.1 H (2.5-4.0) gm/dl Albumin/Globulin Ratio 0.9 (0.9-2) TSH (0.300-4.500) uIu/ml Random Cortisol mcg/dl Urine Color Yellow Urine Appearance Clear (Clear) Urine pH 8.5 H (4.5-7.5) Ur Specific [place] 1.009 (1.000-1.030) Urine Protein Negative (Negative) Urine Glucose (UA) Negative (Negative) Urine Ketones Negative (Negative) Urine Blood Trace H (Negative) Urine Nitrite Negative (Negative) Urine Bilirubin Negative (Negative) Urine Urobilinogen Negative (Negative) Ur Leukocyte Esterase Negative (Negative) Urine WBC (Auto) 0 (0-5) /hpf Urine RBC (Auto) 0-4 (0-4) /hpf U Hyaline Cast (Auto) 0 (0-5) /lpf U Epithel Cells (Auto) 0-5 (0-5) /lpf Urine Bacteria (Auto) Negative (Negative) 09/05/20 09/05/20 09/05/20 Range/Units 01:11 01:11 01:11 WBC (4.8-10.8) K/uL RBC (4.7-6.1) M/uL Hgb (14.0-18.0) g/dL Hct (42-52) % MCV (80-100) fL MCH (25-34) pg MCHC (32-36) g/dL RDW Std Deviation (36.4-46.3) fL RDW Coeff of Jessica (11.5-14.5) % Plt Count (130-400) K/uL MPV (7.4-10.4) fL Immature Gran % (Auto) % Neut % (Auto) % Lymph % (Auto) % [place] % (Auto) % Eos % (Auto) % Baso % (Auto) % Neut # (Auto) (1.4-6.5) K/uL Lymph # (Auto) (1.2-3.4) K/uL [place] # (Auto) (0.11-0.59) K/uL Eos # (Auto) (0-0.5) K/uL Baso # (Auto) (0-0.2) K/uL Immature Gran # (Auto) (0.00-0.02) K/uL PT 10.1 (9.0-12.0) Seconds INR 1.0 (0.9-1.1) Sodium (136-145) mmol/L Potassium (3.5-5.1) mmol/L Chloride (98-107) mmol/L Carbon Dioxide (21-32) mmol/L Anion Gap (3-11) BUN (7-18) mg/dl Creatinine (0.6-1.4) mg/dl Est Cr Clr Drug Dosing ml/min Est GFR ( Amer) Est GFR (Non-Af Amer) BUN/Creatinine Ratio (10-20) Glucose (70-99) mg/dl Calcium (8.5-10.1) mg/dl Magnesium (1.8-2.4) mg/dl Total Bilirubin (0.2-1) mg/dl AST (15-37) U/L ALT (12-78) U/L Alkaline Phosphatase (45-117) U/L Troponin I (0-0.045) ng/ml Total Protein (6.4-8.2) gm/dl Albumin (3.4-5.0) gm/dl Globulin (2.5-4.0) gm/dl Albumin/Globulin Ratio (0.9-2) TSH 2.060 (0.300-4.500) uIu/ml Random Cortisol 15.33 mcg/dl Urine Color Urine Appearance (Clear) Urine pH (4.5-7.5) Ur Specific [place] (1.000-1.030) Urine Protein (Negative) Urine Glucose (UA) (Negative) Urine Ketones (Negative) Urine Blood (Negative) Urine Nitrite (Negative) Urine Bilirubin (Negative) Urine Urobilinogen (Negative) Ur Leukocyte Esterase (Negative) Urine WBC (Auto) (0-5) /hpf Urine RBC (Auto) (0-4) /hpf U Hyaline Cast (Auto) (0-5) /lpf U Epithel Cells (Auto) (0-5) /lpf Urine Bacteria (Auto) (Negative) Imaging Data Radiologist's Impression: Head CT 09/05/20 01:27 CT head/brain wo con CLINICAL HISTORY: Hypertension. Visual changes. Change in speech. Possible acute stroke COMPARISON STUDY: No previous studies for comparison. TECHNIQUE: Axial CT of the brain is performed from the vertex to the skull base. IV contrast was not administered for this examination. A dose lowering technique was utilized adhering to the principles of ALARA. CT DOSE: 614.27 mGy.cm FINDINGS: No intra or extra-axial mass lesions are visualized. There is no CT evidence of acute cortical infarction. There is no evidence of midline shift. There is no acute hemorrhage. No calvarial fractures are visualized. There are minor white matter hypodensities likely on a small vessel basis. There is no evidence of pathologic ventricular dilatation. There is no evidence of acute sinusitis IMPRESSION: No acute intracranial findings ACT 112: Negative or not required by law. Electronically signed by: Aleksey Mansfield M.D. 09/05/2020 7:[address] head: No acute intracranial hemorrhage, mass-effect or edema. No evidence of acute cortical stroke. Minimal mucosal thickening of the paranasal sinuses. Radiologist: Teresa Mario MD ECG Data Attestation: I personally reviewed and interpreted this ECG as follows: Indication: + other Rate (beats per minute): 66 Rhythm: + normal sinus ECG Intervals/blocks: + First degree AV block, + Normal QRS and + Normal QT ECG [place]: + Normal ECG ST segments: + Nonspecific ST abnormalities Blood Pressure Blood Pressure Findings: Elevated blood pressure MDM Narrative THis is a 69 yo male with a hx of htn who is managed by nephrology. Pt presented after concern for elevated BP readings at home. Pt states asymptomatic, but then states feels speech isn't totally normal. No obvious dysathria noted, NIHSS 0. BP elevated here significantly. Pt denied missing any meds. BP marginally improved after discussion/evaluation at bedside. Discussed IV meds, pt given hydralazine with improvement. Labs and imaging reassuring. BP slowly began to elevate again. I discussed with him my concern for persistent significantly elevated BP, despite minimal symptoms, and benefit/risks fo additional inpatient evaluation. After additional discussion, pt in agreement. Additional dose of hydralazine added. POtassium repleted. Case discussed with hospitalist. An order was placed for continuous cardiac monitoring. The monitor shows a rate of 62_ with _normal sinus__ rhythm. Impression & Plan Hypertensive urgency, Paroxysmal atrial fibrillation, Anticoagulant long-term use, Solitary right kidney, Hypokalemia Discharge Plan Visit Data Chief Complaint: Hypertension Stated Complaint: BLOOD PRESSURE IS RICK ED Provider: Kina Tyson Discharge Problem: Hypertensive urgency, Paroxysmal atrial fibrillation, Anticoagulant long-term use, Solitary right kidney, Hypokalemia Patient Disposition: Admitted As Inpatient Discharge Instructions Interventions: ED Discharge Assessment Last Done: 09/05/20 07:23
[2020-09-05 02:47] LABS: Appearance Urine Clear (Clear); Bacteria Urine Automated Negative (Negative); Bilirubin Urine Negative (Negative); Blood Urine Trace (Negative); Cast Urine Automated 0 /lpf (0-5); Color Urine Yellow; Epithelial Cell Urine Auto 0-5 /lpf (0-5); Glucose Urine UA Negative (Negative); Ketones Urine Negative (Negative); Leukocyte Esterase Urine Negative (Negative); Nitrite Urine Negative (Negative); Protein Urine Negative (Negative); RBC Urine Automated 0-4 /hpf (0-4); Specific Gravity Urine 1.009 (1.000-1.030); Urobilinogen Urine Negative (Negative); WBC Urine Automated 0 /hpf (0-5); pH Urine 8.5 (4.5-7.5)
[2020-09-05] MEDS ORDERED: POTASSIUM CHLORIDE CRTAB 20 MEQ TABCR PO STA (03:14)
[2020-09-05] MEDS ORDERED: SODIUM CHLORIDE 0.9% 500 ML IV ONE (03:14)
[2020-09-05] MEDS ORDERED: hydrALAZINE HCL 20 MG/ML VIAL IV ONE (04:03)
--- NOTE | 2020-09-05 05:48 | History & Physical Report ---
Date of Service September 05, 2020 Assessment & Plan (1) Hypertension: 69yo male presenting with HTN urgency. BP markedly elevated in the ER. Patient feels some mild shortness of breath and feels quite anxious. Had a brief episode of possible slurred speech which has resolved. Labs significant for hypokalemia with K=3, renal function is intact. Stable anemia. Patient with history of RCC s/p laparoscopic nephrectomy performed on 05/01/2016 and is with solitary kidney at this time. Patient with longstanding history of hypertension. He follows with Nephrology. He was previously on Eplerenone and reports adequate blood pressure control with this medication. Eplerenone was discontinued in May due to gynecomastia and patient reports that his blood pressure has been elevated since. He is most currently on Losartan, Metoprolol, HCTZ and Doxazosin. He reports compliance with his medications as well as compliance with a low Na diet. Patient has AYAN and reports compliance with his CPAP as well. He is currently being treated for sinusitis with a course of Amoxicillin and has been taking Cloricidin HBP occasionally for symptom management. Question if patient has secondary cause of hypertension. Possibly renal artery stenosis secondary to atherosclerosis - solitary kidney. Possibly hyperaldosteronism - patient with hypokalemia with K=3, he reports better control of his blood pressure while on mineralcorticoid antagonist - however, was unable to tolerate No evidence of end organ damage at this time -Check renal doppler -Check plasma renin activity and plasma aldosterone. Of note, patient is on an ARB which can interfere with laboratory results -Check TSH -Check random cortisol -Continue home medications - will give AM medications now then schedule for 0900 as usual -Closely monitor BP -Nephrology consultation appreciated Present on Admission?: Yes (2) Solitary right kidney: Patient with history of RCC s/p laparoscopic nephrectomy on 05/01/16 -Noted Present on Admission?: Yes (3) Dyslipidemia: Chronic -Continue Atorvastatin 40mg po daily Present on Admission?: Yes (4) Paroxysmal atrial fibrillation: Presently in NSR, rate controlled although patient states that a rate of 86 is much faster than his baseline. -Continue Metoprolol -Continue Apixaban -Continue Flecainide (150mg qAM and 100mg po qPM) Present on Admission?: Yes (5) AYAN (obstructive sleep apnea): Chronic -CPAP qHS -Patient may use own CPAP Present on Admission?: Yes (6) Sinusitis: Patient currently being treated for sinusitis with Amoxicillin 500mg po BID x 5 day course. He was started on 09/02/20 -Continue Amoxicillin 500mg po BID through 09/07/20 F/E/N - Heplock. K repletion with 40mEq PO - monitor electrolytes, Low Na diet as tolerated Ppx - Patient anticoagulated on Apixaban - continue Code - Full Dispo - Admit to medical with telemetry History of Present Illness Chief Complaint: hypertension Primary Care Provider: MALENA Avendano Cesario Stallings is a 69yo male with history of HTN, PAF and AYAN presenting with hypertension. Patient follows with Nephrology for management with his blood pressure. He was previously treated with Eplerenone which resulted in gynecomastia therefore this medication was discontinued in May. He was then started on Amiloride daily with no improvement in gynecomastia therefore this medication was discontinued as well. He reports overall poor control of his blood pressure since discontinuing the Eplerenone. Patient presents today with hypertension. He reports his blood pressure was elevated early in the evening - appx 160 systolic. He attended a family birthday republican and when he returned his blood pressure was 187 systolic which prompted him to come to the ER. Since being in the ER he has remained hypertensive ranging 176-243 / 83-104. He feels anxious and some mild shortness of breath and palpitations. He had a brief episode of what he thought was slurred speech which has since resolved. Otherwise he denies chest pain, dizziness, MCDONALD, visual disturbance, focal numbness/weakness, abdominal pain, back pain. He reports compliance with his medications although he did miss his PM meds tonight because he was in the ER. He wears his CPAP qHS and has it with him today. He was recently diagnosed with sinusitis and started on Amoxicillin. He has been taking that medication as prescribed. Also has been taking Coricidin HBP for his sinus symptoms. He denies tobacco use, heavy caffeine use or EtOH. No additional complaints at this time. ER Course: Hydralazine 10mg IV, 5mg IV, KCl 40mEq, NSS x 500 Allergies Allergy/AdvReac Type Severity Reaction Status Date / Time amlodipine AdvReac Unknown Verified 09/05/20 02:00 eplerenone AdvReac gynecomasti Verified 08/17/20 10:18 a SHINGLES VACCINE AdvReac Unknown TIRED, Uncoded 08/17/20 10:18 SHIVERS AT NIGHT, WEAK Home Medications Medication Instructions Recorded Confirmed Type multivitamin [Multiple Vitamins] 1 tab PO DAILY 08/11/18 09/05/20 History omega 8-oyi-xnn-fish oil [Fish Oil] 1 cap PO DAILY 08/11/18 09/05/20 History flecainide 100 mg tablet 150 mg PO .COMPLEX #225 tab 12/17/19 09/05/20 Rx metoprolol succinate 25 mg 12.5 mg PO DAILY #45 tab 12/17/19 09/05/20 Rx tablet,extended release 24 hr atorvastatin 40 mg tablet 40 mg PO QPM #90 ea 12/18/19 09/05/20 Rx apixaban 5 mg tablet 5 mg PO BID #180 tab 01/21/20 09/05/20 Rx potassium chloride 10 mEq 10 meq PO DAILY #90 cap 08/17/20 09/05/20 Rx capsule,extended release doxazosin 1 mg tablet 1 mg PO BID #180 tab 08/29/20 09/05/20 Rx amoxicillin 500 mg capsule 500 mg PO BID #10 cap 09/02/20 09/05/20 Rx hydrochlorothiazide 12.5 mg PO QPM 09/05/20 09/05/20 History hydrochlorothiazide 25 mg PO QAM 09/05/20 09/05/20 History losartan 100 mg PO DAILY 09/05/20 09/05/20 History Past Med/Surg History Medical History Anticoagulant long-term use Cataract Right Eye Difficult intubation 05/01/16 - Glidescope #3, ETT #7.5. "Difficult intubation with glidescope. 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 Hypertension Paroxysmal atrial fibrillation Renal cell carcinoma of left kidney Solitary right kidney Surgical History H/O left nephrectomy 05/01/16 History of colonoscopy History of hernia repair Bilateral inguinal History of left cataract surgery History of tonsillectomy Family History Mother Breast cancer Ovarian cancer Diabetes Hypertension Father Hypertension Brother Hypertension Social History Smoking Status: Former smoker Hx Alcohol Use: Yes Alcohol type: beer, wine and hard liquor Hx Substance Use: No Preferred Language: Danish Communication Ability: Effective Field Gauger Required: No Beliefs That Will Affect Care: None Current Living Situation: Spouse Feels Safe at Home: Yes Seatbelt Use: always Assistive Devices: Glasses and Hearing Aid - Bilateral Review of Systems Review of Systems: All systems reviewed & are unremarkable except as noted in HPI & below Physical Exam Physical Exam: General: patient resting comfortably, NAD, anxious but non-t oxic in appearance, AA&O x 4 Skin: warm, dry, intact, no rashes or lesions HEENT: NC/AT, PERRL, EOMI, anicteric sclera, conjunctiva without injection, external ear normal to inspection and nontender, nares patent, moist mucus membranes, dentition intact, no oropharyngeal lesions, neck supple, trachea midline, no LAD, no thyromegaly, no JVD Heart: +S1/S2, regular, no m/r/g Lungs: equal air entry bilaterally, no rales/rhonchi/wheezes Abd: +BS, soft, NT/ND, no masses/organomegaly/ascites Ext: warm, 2+ pulses in UE/LE bilaterally, no clubbing/cyanosis or trace pitting edema of bilateral LE, compression stockings in place Neuro: nonfocal, patient AA&O x 4, speech intact, no facial droop, moving all extremities on command with equal strength 5/5 Results & Data Results & Data ([facility]) Vital Signs (Past 12 Hours) Vital Signs Temp Pulse Resp BP BP Pulse Ox 09/05/20 04:18 71 22 200/96 H 09/05/20 04:00 65 22 09/05/20 03:45 60 17 94 09/05/20 03:35 65 20 177/84 H 93 09/05/20 03:20 181/87 H 09/05/20 03:15 182/84 H 09/05/20 03:10 181/82 H 09/05/20 03:05 180/90 H 09/05/20 03:00 177/82 H 09/05/20 02:55 177/81 H 09/05/20 02:50 184/87 H 09/05/20 02:47 198/93 H 09/05/20 02:40 185/82 H 09/05/20 02:35 178/81 H 09/05/20 02:30 179/79 H 09/05/20 02:25 177/83 H 09/05/20 02:22 197/88 H 09/05/20 01:50 66 19 176/86 H 176/86 H 95 09/05/20 01:48 63 20 09/05/20 01:46 62 20 182/89 H 09/05/20 01:30 63 24 214/92 H 09/05/20 01:24 70 24 225/104 H 09/05/20 01:17 61 21 09/05/20 01:06 62 20 243/103 H 09/05/20 00:50 36.4 C L 57 L 18 233/93 H 98 Laboratory Results Lab Results 09/05/20 09/05/20 09/05/20 Range/Units 01:05 01:11 01:11 WBC 4.82 (4.8-10.8) K/uL RBC 4.33 L (4.7-6.1) M/uL Hgb 12.5 L (14.0-18.0) g/dL Hct 37.4 L (42-52) % MCV 86.4 (80-100) fL MCH 28.9 (25-34) pg MCHC 33.4 (32-36) g/dL RDW Std Deviation 47.3 H (36.4-46.3) fL RDW Coeff of Jessica 14.9 H (11.5-14.5) % Plt Count 223 (130-400) K/uL MPV 10.7 H (7.4-10.4) fL Immature Gran % (Auto) 0.4 % Neut % (Auto) 63.6 % Lymph % (Auto) 19.9 % [place] % (Auto) 9.5 % Eos % (Auto) 6.4 % Baso % (Auto) 0.2 % Neut # (Auto) 3.06 (1.4-6.5) K/uL Lymph # (Auto) 0.96 L (1.2-3.4) K/uL [place] # (Auto) 0.46 (0.11-0.59) K/uL Eos # (Auto) 0.31 (0-0.5) K/uL Baso # (Auto) 0.01 (0-0.2) K/uL Immature Gran # (Auto) 0.02 (0.00-0.02) K/uL PT (9.0-12.0) Seconds INR (0.9-1.1) Sodium 142 (136-145) mmol/L Potassium 3.0 L (3.5-5.1) mmol/L Chloride 103 (98-107) mmol/L Carbon Dioxide 34 H (21-32) mmol/L Anion Gap 5.0 (3-11) BUN 21 H (7-18) mg/dl Creatinine 0.99 (0.6-1.4) mg/dl Est Cr Clr Drug Dosing 80.5 ml/min Est GFR ( Amer) 89.7 Est GFR (Non-Af Amer) 77.4 BUN/Creatinine Ratio 21.4 H (10-20) Glucose 111 H (70-99) mg/dl Calcium 9.1 (8.5-10.1) mg/dl Magnesium 2.3 (1.8-2.4) mg/dl Total Bilirubin 0.3 (0.2-1) mg/dl AST 22 (15-37) U/L ALT 34 (12-78) U/L Alkaline Phosphatase 147 H (45-117) U/L Troponin I < 0.015 (0-0.045) ng/ml Total Protein 7.8 (6.4-8.2) gm/dl Albumin 3.7 (3.4-5.0) gm/dl Globulin 4.1 H (2.5-4.0) gm/dl Albumin/Globulin Ratio 0.9 (0.9-2) Urine Color Yellow Urine Appearance Clear (Clear) Urine pH 8.5 H (4.5-7.5) Ur Specific [place] 1.009 (1.000-1.030) Urine Protein Negative (Negative) Urine Glucose (UA) Negative (Negative) Urine Ketones Negative (Negative) Urine Blood Trace H (Negative) Urine Nitrite Negative (Negative) Urine Bilirubin Negative (Negative) Urine Urobilinogen Negative (Negative) Ur Leukocyte Esterase Negative (Negative) Urine WBC (Auto) 0 (0-5) /hpf Urine RBC (Auto) 0-4 (0-4) /hpf U Hyaline Cast (Auto) 0 (0-5) /lpf U Epithel Cells (Auto) 0-5 (0-5) /lpf Urine Bacteria (Auto) Negative (Negative) 09/05/20 Range/Units 01:11 WBC (4.8-10.8) K/uL RBC (4.7-6.1) M/uL Hgb (14.0-18.0) g/dL Hct (42-52) % MCV (80-100) fL MCH (25-34) pg MCHC (32-36) g/dL RDW Std Deviation (36.4-46.3) fL RDW Coeff of Jessica (11.5-14.5) % Plt Count (130-400) K/uL MPV (7.4-10.4) fL Immature Gran % (Auto) % Neut % (Auto) % Lymph % (Auto) % [place] % (Auto) % Eos % (Auto) % Baso % (Auto) % Neut # (Auto) (1.4-6.5) K/uL Lymph # (Auto) (1.2-3.4) K/uL [place] # (Auto) (0.11-0.59) K/uL Eos # (Auto) (0-0.5) K/uL Baso # (Auto) (0-0.2) K/uL Immature Gran # (Auto) (0.00-0.02) K/uL PT 10.1 (9.0-12.0) Seconds INR 1.0 (0.9-1.1) Sodium (136-145) mmol/L Potassium (3.5-5.1) mmol/L Chloride (98-107) mmol/L Carbon Dioxide (21-32) mmol/L Anion Gap (3-11) BUN (7-18) mg/dl Creatinine (0.6-1.4) mg/dl Est Cr Clr Drug Dosing ml/min Est GFR ( Amer) Est GFR (Non-Af Amer) BUN/Creatinine Ratio (10-20) Glucose (70-99) mg/dl Calcium (8.5-10.1) mg/dl Magnesium (1.8-2.4) mg/dl Total Bilirubin (0.2-1) mg/dl AST (15-37) U/L ALT (12-78) U/L Alkaline Phosphatase (45-117) U/L Troponin I (0-0.045) ng/ml Total Protein (6.4-8.2) gm/dl Albumin (3.4-5.0) gm/dl Globulin (2.5-4.0) gm/dl Albumin/Globulin Ratio (0.9-2) Urine Color Urine Appearance (Clear) Urine pH (4.5-7.5) Ur Specific [place] (1.000-1.030) Urine Protein (Negative) Urine Glucose (UA) (Negative) Urine Ketones (Negative) Urine Blood (Negative) Urine Nitrite (Negative) Urine Bilirubin (Negative) Urine Urobilinogen (Negative) Ur Leukocyte Esterase (Negative) Urine WBC (Auto) (0-5) /hpf Urine RBC (Auto) (0-4) /hpf U Hyaline Cast (Auto) (0-5) /lpf U Epithel Cells (Auto) (0-5) /lpf Urine Bacteria (Auto) (Negative) Diagnostic Findings CT Head - per STAT rad - no acute intracranial findings ECG Additional Comments: EKG with SR at 66, 1st degree AV block with UH=625, FZQ=526, QTc=78, nonspecific ST abnormalities PG Care Time/CCT Total # of Minutes Spent Total Time Spent with Patient: Total time spent is greater than 50% in coordination of care (as documented) at patient's floor/unit and/or counseling patient: Coding Level of Care Code 50859 Initial Inpt Care Lvl 3 Diagnoses Hypertension I10 Solitary right kidney Q60.0 Dyslipidemia E78.5 Paroxysmal atrial fibrillation I48.0 AYAN (obstructive sleep apnea) G47.33 Sinusitis J32.9 Sinusitis location: unspecified location Chronicity: unspecified (1) Sinusitis Sinusitis location: unspecified location Chronicity: unspecified Qualified Code(s): J32.9 - Chronic sinusitis, unspecified
[2020-09-05 06:17] LABS: Influenza A virus by PCR Negative (Neg); Influenza B virus by PCR Negative (Neg); RSV by PCR Negative (Neg); SARS CoV2 RNA(COVID-19) InHosp NEGATIVE (Negative)
--- NOTE | 2020-09-05 07:09 | CT Scan Report ---
CT head/brain wo con CLINICAL HISTORY: Hypertension. Visual changes. Change in speech. Possible acute stroke COMPARISON STUDY: No previous studies for comparison. TECHNIQUE: Axial CT of the brain is performed from the vertex to the skull base. IV contrast was not administered for this examination. A dose lowering technique was utilized adhering to the principles of ALARA. CT DOSE: 614.27 mGy.cm FINDINGS: No intra or extra-axial mass lesions are visualized. There is no CT evidence of acute cortical infarc tion. There is no evidence of midline shift. There is no acute hemorrhage. No calvarial fractures ar e visualized. There are minor white matter hypodensities likely on a small vessel basis. There is no evidence of pathologic ventricular dilatation. There is no evidence of acute sinusitis IMPRESSION: No acute intracranial findings ACT 112: Negative or not required by law. Electronically signed by: Aleksey Mansfield M.D. 09/05/2020 7:07 AM
[2020-09-05] MEDS ORDERED: hydroCHLOROthiazide 25 MG TAB PO SCH ×2 (09:10→21:00)
[2020-09-05] MEDS ORDERED: DOXAZOSIN MESYLATE 1 MG TAB PO SCH (09:10)
[2020-09-05] MEDS ORDERED: ONDANSETRON INJ 2 MG/ML 2 ML VIAL IV PRN (09:10)
[2020-09-05] MEDS ORDERED: ACETAMINOPHEN 325 MG TAB PO PRN (09:10)
[2020-09-05] MEDS ORDERED: MAGNESIUM SULFATE / D5W 1 GM/100 ML BAG IV ONE (09:10)
[2020-09-05] MEDS: FLECAINIDE ACETATE 100 MG TABLET PO SCH ×2 (10:22→20:49)
[2020-09-05] MEDS: METOPROLOL SUCC 25MG EXT REL TAB PO SCH (10:23)
[2020-09-05] MEDS: LOSARTAN POTASSIUM 50 MG TAB PO SCH (10:24)
[2020-09-05] MEDS: APIXABAN 5 MG TABLET PO SCH ×2 (10:24→20:49)
[2020-09-05] MEDS: AMOXICILLIN 500 MG CAP PO SCH ×2 (10:24→20:47)
--- NOTE | 2020-09-05 11:17 | Nephrology Consultation ---
Date of Consultation September 05, 2020 Assessment & Plan (1) Hypertension: * Accelerated HTN. BP has been trending up over the last several months. Patient has been adherant to his prescibed medical regimen but intolerant of Eplerenone due to gynecomastia and Amlodipine due to LE swelling. Recently he reports increased dietary sodium and has begun wearing LE compression stockings due to edema. Mr. Stallings appears clinically euthyroid, TSH and cortisol levels are normal. He denies the use of decongestants, excessive caffeine or alcohol. He does not use herbal supplements or chew black licorice. HR is within target range of 55 - 65 bpm on beta rafiq therapy. Kidney function is stable on maximal dose ARB therapy. Mr. Stallings did not undergo titration of Amiloride. He dose not appear to be adequately diuresed (LE swelling) * Continue Metoprolol 25 mg 1/2 tablet daily. 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 Stallings is a 69 year old [place] male who is seen at the request of Dr. Keller for evaluation of accelerated HTN. Medical records in the EMR were reviewed today and are summarized as follows: Mr. Santiago medical history is significant for RCCA s/p L nephrectomy 04/27, 6 mm R lung nodule, AYAN, atrial fibrillation (flecainide, apixaban) and HTN. Mr. Santiago reports that he developed HTN ~ 30 years ago. He has been on multiple medications. He was intolerant of eplerenone due to gynecomastia, amlodipine due to LE swelling. His current medical regimen consists of Metoprolol 25 mg 1/2 tablet qAM, Losartan 100 mg qAM, HCTZ 25mg qAM/12.5mg qNoon. He was recently changed from Amiloride 5 mg daily to Cardura 1 mg BID. He did not feel that Amiloride helped but now notes increasing LE swelling. He is wearing compression stockings and attributes his edema to the Cardura therapy. Mr. Maddox notes that his home SBP has been 140 - 160 mmHg. Recently he attended a Birthday celebration and my not have been overly adherant to his low sodium diet. Last evening he presented to the ED for evaluation of dysarthria. BP was 243/103, ECG revealed 1st degree AVB without ST or T-wave changes, head CT was negative for CVA. BP was treated w/ IV hydralazine and oral KCl administered to repleat potassium stores. Mr. Stallings was then admitted to the ICU/hospitalist service for ongoing medical management. Allergies Allergy/AdvReac Type Severity Reaction Status Date / Time eplerenone AdvReac Intermediate gynecomasti Verified 09/05/20 09:23 a amlodipine AdvReac Mild Edema Verified 09/05/20 09:23 lower extrimities zoster vaccine live AdvReac Unknown TIRED, Verified 09/05/20 09:23 SHIVERS AT NIGHT, WEAK Home Medications Medication Instructions Recorded Confirmed Type multivitamin [Multiple Vitamins] 1 tab PO DAILY 08/11/18 09/05/20 History omega 9-wfw-vjt-fish oil [Fish Oil] 1 cap PO DAILY 08/11/18 09/05/20 History flecainide 100 mg tablet 150 mg PO .COMPLEX #225 tab 12/17/19 09/05/20 Rx metoprolol succinate 25 mg 12.5 mg PO DAILY #45 tab 12/17/19 09/05/20 Rx tablet,extended release 24 hr atorvastatin 40 mg tablet 40 mg PO QPM #90 ea 12/18/19 09/05/20 Rx apixaban 5 mg tablet 5 mg PO BID #180 tab 01/21/20 09/05/20 Rx potassium chloride 10 mEq 10 meq PO DAILY #90 cap 08/17/20 09/05/20 Rx capsule,extended release doxazosin 1 mg tablet 1 mg PO BID #180 tab 08/29/20 09/05/20 Rx amoxicillin 500 mg capsule 500 mg PO BID #10 cap 09/02/20 09/05/20 Rx hydrochlorothiazide 12.5 mg PO QPM 09/05/20 09/05/20 History hydrochlorothiazide 25 mg PO QAM 09/05/20 09/05/20 History losartan 100 mg PO DAILY 09/05/20 09/05/20 History Patient History Medical History Anticoagulant long-term use Cataract Right Eye Difficult intubation 05/01/16 - Glidescope #3, ETT #7.5. "Difficult intubation with glidescope. 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 Hypertension Paroxysmal atrial fibrillation Renal cell carcinoma of left kidney Solitary right kidney Surgical History H/O left nephrectomy 05/01/16 History of colonoscopy History of hernia repair Bilateral inguinal History of left cataract surgery History of tonsillectomy Family History Mother Breast cancer Ovarian cancer Diabetes Hypertension Father Hypertension Brother Hypertension Social History Smoking Status: Former smoker Second Hand Exposure: No; Hx Alcohol Use: No Hx Substance Use: No Preferred Language: Guinean Communication Ability: Effective Die Developer Required: No Beliefs That Will Affect Care: None Current Living Situation: Spouse Feels Safe at Home: Yes Seatbelt Use: always Assistive Devices: CPAP and Glasses Review of Systems Constitutional: no fever Eyes: no problem reported Ear, Nose, Mouth, Throat: no problem reported Respiratory: no dyspnea Cardiovascular: + edema; no chest pain and no palpitations Gastrointestinal: no abdominal pain, no nausea and no diarrhea/loose stools Genitourinary: no dysuria, no urinary hesitancy and no hematuria Musculoskeletal: no back pain Integumentary: no rash Neurologic: no falls, no dizziness and no confusion Physical Exam Constitutional: healthy appearing; not in distress Eyes: PERRL, conjunctivae normal, anicteric sclerae ENMT: external ear and nose normal, oropharynx normal Neck: trachea midline, no thyromegaly Respiratory: normal respiratory effort, lungs clear to auscultation Cardiovascular: Rate/Rhythm: regular rate and regular rhythm Heart Sounds: no cardiac rub Vessels: no JVD Extremities: + edema (trace bilateral LE swelling. Compression stockings in place) Gastrointestinal (Abdomen): normal bowel sounds, soft, nontender, no hepatosplenomegaly (no aortic or renal arterial bruit) Musculoskeletal: no cyanosis or clubbing, extremities motor strength 5/5 Skin: no rashes, warm and dry Neurologic: awake; not confused Results & Data ([facility]) Vital Signs (Past 12 Hours) Vital Signs Temp Pulse Resp BP BP Pulse Ox 09/05/20 09:01 37.0 C 74 19 166/84 H 95 09/05/20 07:00 68 19 135/68 94 09/05/20 06:30 73 16 146/72 H 09/05/20 06:15 70 17 09/05/20 06:11 75 24 176/84 H 09/05/20 06:00 79 20 169/95 H 09/05/20 05:45 76 16 09/05/20 05:30 77 18 169/73 H 09/05/20 05:25 77 22 181/95 H 09/05/20 05:15 72 18 09/05/20 05:06 82 15 09/05/20 04:45 77 25 H 09/05/20 04:41 83 20 200/91 H 09/05/20 04:30 73 18 182/85 H 09/05/20 04:29 73 19 165/122 H 09/05/20 04:18 71 22 200/96 H 09/05/20 04:00 65 22 09/05/20 03:45 60 17 94 09/05/20 03:35 65 20 177/84 H 93 09/05/20 03:20 181/87 H 09/05/20 03:15 182/84 H 09/05/20 03:10 181/82 H 09/05/20 03:05 180/90 H 09/05/20 03:00 177/82 H 09/05/20 02:55 177/81 H 09/05/20 02:50 184/87 H 09/05/20 02:47 198/93 H 09/05/20 02:40 185/82 H 09/05/20 02:35 178/81 H 09/05/20 02:30 179/79 H 09/05/20 02:25 177/83 H 09/05/20 02:22 197/88 H 09/05/20 01:50 66 19 176/86 H 176/86 H 95 09/05/20 01:48 63 20 09/05/20 01:46 62 20 182/89 H 09/05/20 01:30 63 24 214/92 H 09/05/20 01:24 70 24 225/104 H 09/05/20 01:17 61 21 09/05/20 01:06 62 20 243/103 H 09/05/20 00:50 36.4 C L 57 L 18 233/93 H 98 RENAL US 04/12/20: The right kidney measures 12 cm. Left kidney is surgically absent. There is no evidence of hydronephrosis. There are 2 mid to upper pole right renal cysts measuring 15 mm and 10 mm respectively. No solid renal masses are visualized. Laboratory Results - last 24 hr 09/05/20 09/05/20 09/05/20 01:05 01:11 01:11 WBC 4.82 RBC 4.33 L Hgb 12.5 L Hct 37.4 L MCV 86.4 MCH 28.9 MCHC 33.4 RDW Std Deviation 47.3 H RDW Coeff of Jessica 14.9 H Plt Count 223 MPV 10.7 H Immature Gran % (Auto) 0.4 Neut % (Auto) 63.6 Lymph % (Auto) 19.9 [place] % (Auto) 9.5 Eos % (Auto) 6.4 Baso % (Auto) 0.2 Neut # (Auto) 3.06 Lymph # (Auto) 0.96 L [place] # (Auto) 0.46 Eos # (Auto) 0.31 Baso # (Auto) 0.01 Immature Gran # (Auto) 0.02 PT INR Sodium 142 Potassium 3.0 L Chloride 103 Carbon Dioxide 34 H Anion Gap 5.0 BUN 21 H Creatinine 0.99 Est Cr Clr Drug Dosing 80.5 Est GFR ( Amer) 89.7 Est GFR (Non-Af Amer) 77.4 BUN/Creatinine Ratio 21.4 H Glucose 111 H Calcium 9.1 Magnesium 2.3 Total Bilirubin 0.3 AST 22 ALT 34 Alkaline Phosphatase 147 H Troponin I < 0.015 Total Protein 7.8 Albumin 3.7 Globulin 4.1 H Albumin/Globulin Ratio 0.9 Renin Activity Aldosterone TSH Random Cortisol Urine Color Yellow Urine Appearance Clear Urine pH 8.5 H Ur Specific Mcallister 1.009 Urine Protein Negative Urine Glucose (UA) Negative Urine Ketones Negative Urine Blood Trace H Urine Nitrite Negative Urine Bilirubin Negative Urine Urobilinogen Negative Ur Leukocyte Esterase Negative Urine WBC (Auto) 0 Urine RBC (Auto) 0-4 U Hyaline Cast (Auto) 0 U Epithel Cells (Auto) 0-5 Urine Bacteria (Auto) Negative COVID-19 Eval Order SARS-CoV-2 (PCR) Influenza Type A (PCR) Influenza Type B (PCR) RSV (RT-PCR) 09/05/20 09/05/20 09/05/20 01:11 01:11 01:11 WBC RBC Hgb Hct MCV MCH MCHC RDW Std Deviation RDW Coeff of Jessica Plt Count MPV Immature Gran % (Auto) Neut % (Auto) Lymph % (Auto) [place] % (Auto) Eos % (Auto) Baso % (Auto) Neut # (Auto) Lymph # (Auto) [place] # (Auto) Eos # (Auto) Baso # (Auto) Immature Gran # (Auto) PT 10.1 INR 1.0 Sodium Potassium Chloride Carbon Dioxide Anion Gap BUN Creatinine Est Cr Clr Drug Dosing Est GFR ( Amer) Est GFR (Non-Af Amer) BUN/Creatinine Ratio Glucose Calcium Magnesium Total Bilirubin AST ALT Alkaline Phosphatase Troponin I Total Protein Albumin Globulin Albumin/Globulin Ratio Renin Activity Aldosterone TSH 2.060 Random Cortisol 15.33 Urine Color Urine Appearance Urine pH Ur Specific Mcallister Urine Protein Urine Glucose (UA) Urine Ketones Urine Blood Urine Nitrite Urine Bilirubin Urine Urobilinogen Ur Leukocyte Esterase Urine WBC (Auto) Urine RBC (Auto) U Hyaline Cast (Auto) U Epithel Cells (Auto) Urine Bacteria (Auto) COVID-19 Eval Order SARS-CoV-2 (PCR) Influenza Type A (PCR) Influenza Type B (PCR) RSV (RT-PCR) 09/05/20 09/05/20 09/05/20 05:26 05:26 09:21 WBC RBC Hgb Hct MCV MCH MCHC RDW Std Deviation RDW Coeff of Jessica Plt Count MPV Immature Gran % (Auto) Neut % (Auto) Lymph % (Auto) [place] % (Auto) Eos % (Auto) Baso % (Auto) Neut # (Auto) Lymph # (Auto) [place] # (Auto) Eos # (Auto) Baso # (Auto) Immature Gran # (Auto) PT INR Sodium Potassium Chloride Carbon Dioxide Anion Gap BUN Creatinine Est Cr Clr Drug Dosing Est GFR ( Amer) Est GFR (Non-Af Amer) BUN/Creatinine Ratio Glucose Calcium Magnesium Total Bilirubin AST ALT Alkaline Phosphatase Troponin I Total Protein Albumin Globulin Albumin/Globulin Ratio Renin Activity Pending Aldosterone Pending TSH Random Cortisol Urine Color Urine Appearance Urine pH Ur Specific Mcallister Urine Protein Urine Glucose (UA) Urine Ketones Urine Blood Urine Nitrite Urine Bilirubin Urine Urobilinogen Ur Leukocyte Esterase Urine WBC (Auto) Urine RBC (Auto) U Hyaline Cast (Auto) U Epithel Cells (Auto) Urine Bacteria (Auto) COVID-[address] Eval [address] Cov[address]Rsv at [facility] SARS-CoV-2 (PCR) NEGATIVE Influenza Type A (PCR) Negative Influenza Type B (PCR) Negative RSV (RT-PCR) Negative PG Care Time/CCT Total # of Minutes Spent Total Time Spent with Patient: Total time spent is greater than 50% in coord ination of care (as documented) at patient's floor/unit and/or counseling patient: Coding Level of Care Code 30873 Inpt Consult Level 5 Diagnoses Hypertension I10 Solitary right kidney Q60.0 Obesity E66.9 Paroxysmal atrial fibrillation I48.0
[2020-09-05] MEDS: aMILoride HCL 5 MG TAB PO SCH ×2 (11:54→20:47)
[2020-09-05 12:20] LABS: BUN Creatinine Ratio 18.9 (10-20); Calcium 8.9 mg/dl (8.5-10.1); Creatinine Clr Calc Pharmacy 84.8 ml/min; Est GFR (African American) 95.5; Est GFR (Non-African American) 82.4; Potassium 3.3 mmol/L (3.5-5.1)
[2020-09-05] MEDS: CHLORTHALIDONE 25 MG TAB PO SCH (12:40)
[2020-09-05] MEDS ORDERED: POTASSIUM CHLORIDE 10 MEQ TABCR PO STA (12:50)
--- NOTE | 2020-09-05 13:02 | Ultrasound Report ---
US duplex renal artery HISTORY: 69 years-old Male treatment resistant HTN COMPARISON: Renal ultrasound 04/12/2020, CT abdomen and pelvis 09/30/2017 TECHNIQUE: Multiple real-time sonographic images of the renal vascular structures were obtained asses sing grayscale appearance, color and spectral flow FINDINGS: Absent left kidney. The right kidney measures 12.5 cm in length. There is a questioned exophytic lesion of the superior p ole right kidney, 3.6 x 4.1 x 3.8 cm. There are a few tiny subcentimeter right-sided renal cysts. Pat ent renal vein. No elevated peak systolic velocity within the right renal artery to suggest renal art eve hypertension. Peak systolic velocities measure up to 88 cm/s within the mid right renal artery. N ormal plug flow within the abdominal aorta, peak systolic velocity of 76 cm/s. IMPRESSION: 1. No evidence of renal artery stenosis. 2. Questioned exophytic lesion of the superior pole right kidney, 4.1 cm. Further evaluation with a n onemergent CT of the abdomen both with and without the use of IV contrast utilizing renal protocol is recommended. 3. Surgically absent left kidney. ACT 112: Negative or not required by law. The above report was generated using voice recognition software. It may contain grammatical, syntax o r spelling errors. Electronically signed by: Toby Olivera M.D. 09/05/2020 1:01 PM
--- NOTE | 2020-09-05 14:37 | Electrocardiogram Report ---
Test Reason : Blood Pressure : / mmHG Vent. Rate : 066 BPM Atrial Rate : 066 BPM P-R Int : 210 ms QRS Dur : 110 ms QT Int : 456 ms P-R-T Axes : 068 052 078 degrees QTc Int : 478 ms Sinus rhythm with 1st degree A-V block Nonspecific ST and T wave abnormality Abnormal ECG When compared with ECG of 23-DEC-2015 06:46, [place] interval has increased QRS duration has increased QT has lengthened Confirmed by Pierre Chapa ([id number]) on 09/05/2020 2:36:54 PM Referred By: REFERRED SELF Confirmed By:Pierre Chapa
--- NOTE | 2020-09-05 16:13 | XCELERA ---
[id number] \\[id number]
[2020-09-05] MEDS: ATORVASTATIN 40 MG TAB PO SCH (20:49)
[2020-09-06 07:48] LABS: Basophils # (auto) 0.02 K/uL (0-0.2); Basophils % (auto) 0.3 %; Eosinophils # (auto) 0.27 K/uL (0-0.5); Eosinophils % (auto) 4.4 %; Hemoglobin 13.1 g/dL (14.0-18.0); Immature Granulocytes # (auto) 0.02 K/uL (0.00-0.02); Immature Granulocytes % (auto) 0.3 %; Lymphocytes # (auto) 1.04 K/uL (1.2-3.4); Lymphocytes % (auto) 17.1 %; Mean Corpuscular Hemoglobin 28.3 pg (25-34); Mean Corpuscular Hgb Conc 32.8 g/dL (32-36); Mean Corpuscular Volume 86.4 fL (80-100); Mean Platelet Volume 10.5 fL (7.4-10.4); Monocytes # (auto) 0.45 K/uL (0.11-0.59); Monocytes % (auto) 7.4 %; Neutrophils # (auto) 4.28 K/uL (1.4-6.5); Neutrophils % (auto) 70.5 %; Platelet Count 220 K/uL (130-400); RDW Coefficient of Variation 15.1 % (11.5-14.5); RDW Standard Deviation 48.2 fL (36.4-46.3); Red Blood Count 4.63 M/uL (4.7-6.1); White Blood Count 6.08 K/uL (4.8-10.8)
[2020-09-06 07:54] LABS: BUN Creatinine Ratio 17.5 (10-20); Calcium 9.2 mg/dl (8.5-10.1); Creatinine Clr Calc Pharmacy 67.9 ml/min; Est GFR (African American) 74.1; Est GFR (Non-African American) 63.9; Potassium 3.5 mmol/L (3.5-5.1)
[2020-09-06] MEDS: CHLORTHALIDONE 25 MG TAB PO SCH (08:15)
[2020-09-06] MEDS: AMOXICILLIN 500 MG CAP PO SCH ×2 (08:15→20:16)
[2020-09-06] MEDS: aMILoride HCL 5 MG TAB PO SCH ×2 (08:15→20:15)
[2020-09-06] MEDS: LOSARTAN POTASSIUM 50 MG TAB PO SCH (08:15)
[2020-09-06] MEDS: METOPROLOL SUCC 25MG EXT REL TAB PO SCH (08:16)
[2020-09-06] MEDS: APIXABAN 5 MG TABLET PO SCH ×2 (08:16→20:16)
[2020-09-06] MEDS: FLECAINIDE ACETATE 100 MG TABLET PO SCH ×2 (08:16→20:17)
--- NOTE | 2020-09-06 09:41 | Nephrology Progress Note ---
Date of Service September 06, 2020 Assessment & Plan (1) Hypertension: * Accelerated HTN - SBP 130 - 200 mmHg yesterday. Patient received outpatient medical regimen yesterday morning. Medication changes made yesterday will be started this morning * Dietitian has provided education on low Na diet. Reviewed w/ patient this am * Await renin and aldosterone levels * TSH and cortisol levels were WNL this am * Will check 24 hour urine Na * Continue Metoprolol 25 mg 1/2 tablet daily. Patient is adequately beta blocked * Continue Losartan 100 mg qAM * Continue Chlorthalidone 25 mg daily to improve BP control and LE swelling * Continue Amiloride 5 mg po BID to improve BP control and treat hypokalemia * Renal artery doppler is negative for BARBARA but shows a possible 4 cm exophytic lesion involving the R kidney. Discussed w/ patient this am. 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 Echocardiogram revealed LVEF 60 - 65%, mild LVH, mild MR/TR, no change from 2016 study. LFT's WNL. Will await abdominal CT findings (4) Paroxysmal atrial fibrillation: * Managed w/ Metoprolol, Flecainide and Apixaban Admission and Anticipated Discharge Date Admission Date: September 05, 2020 Subjective Mr. Stallings was seen & examined in his hospital room this morning. He reports a recent 30 lb weight gain, increasing abdominal girth and pitting LE swelling that requires compression stockings. He denies fever, flank pain, night sweats, gross hematuria or uremic symptoms Review of Systems Constitutional: + weight gain; no fever Respiratory: no cough and no dyspnea Cardiovascular: + edema (pretibial pitting edema); no chest pain and no palpitations Gastrointestinal: no abdominal pain Physical Exam Constitutional: healthy appearing; not in distress Eyes: PERRL, conjunctivae normal, anicteric sclerae ENMT: external ear and nose normal, oropharynx normal Neck: trachea midline, no thyromegaly Respiratory: normal respiratory effort, lungs clear to auscultation Cardiovascular: Rate/Rhythm: regular rate and regular rhythm Heart Sounds: no cardiac rub Vessels: no JVD Extremities: + edema (1+ pretibial pitting edema bilaterally) Gastrointestinal (Abdomen): Inspection/Auscultation: + abdomen distended (no aortic or renal arterial bruit) and + hypoactive bowel sounds Percussion/Palpation: abdomen soft; abdomen nontender and no guarding Musculoskeletal: no cyanosis or clubbing, extremities motor strength 5/5 Skin: no rashes, warm and dry Neurologic: awake; not confused Results & Data ([facility]) Vital Signs (Past 12 Hours) Vital Signs Temp Pulse Pulse Resp BP Pulse Ox 09/06/20 08:09 36.5 C 61 19 181/91 H 94 09/06/20 07:07 59 L 09/06/20 04:09 36.7 C 58 L 18 159/69 H 97 09/06/20 00:25 60 09/05/20 22:49 36.7 C 60 18 171/86 H 95 Laboratory Tests 09/05/20 09/06/20 09/06/20 01:05 06:55 06:55 WBC 6.08 Hgb 13.1 L Hct 40.0 L Plt Count 220 Sodium 138 Potassium 3.5 Chloride 105 Carbon Dioxide 31 BUN 20 H Creatinine 1.16 Glucose 96 Urine Color Yellow Urine Appearance Clear Urine pH 8.5 H Ur Specific [place] 1.009 Urine Protein Negative Urine Glucose (UA) Negative Urine Blood Trace H Urine Nitrite Negative Ur Leukocyte Esterase Negative Urine RBC (Auto) 0-4 04/12/20 Renal US: The right kidney measures 12 cm. Left kidney is surgically absent. There is no evidence of hydronephrosis. There are 2 mid to upper pole right renal cysts measuring 15 mm and 10 mm respectively. No solid renal masses are visualized. 09/05/20 Renal artery duplex: The right kidney measures 12.5 cm in length. There is a questioned exophytic lesion of the superior pole right kidney, 3.6 x 4.1 x 3.8 cm. There are a few tiny subcentimeter right-sided renal cysts. Patent renal vein. No elevated peak systolic velocity within the right renal artery to s uggest renal artery hypertension. Peak systolic velocities measure up to 88 cm/s within the mid right renal artery. Normal plug flow within the abdominal aorta, peak systolic velocity of 76 cm/s. Questioned exophytic lesion of the superior pole right kidney, 4.1 cm. Further evaluation with a nonemergent CT of the abdomen both with and without the use of IV contrast utilizing renal protocol is recommended. PG Care Time/CCT Total # of Minutes Spent Total Time Spent with Patient: Total time spent is greater than 50% in coordination of care (as documented) at patient's floor/unit and/or counseling patient: Coding Level of Care Code 27106 Subseq Hosp Care Lvl 3 Diagnoses Hypertension I10 Solitary right kidney Q60.0 Obesity E66.9 Paroxysmal atrial fibrillation I48.0
[2020-09-06] MEDS ORDERED: SODIUM CHLORIDE 0.9% 1000ML 1,000 ML IV SCH (09:45)
[2020-09-06] MEDS ORDERED: OPTIRAY 300 100mL IV ONE (10:23)
--- NOTE | 2020-09-06 11:36 | CT Scan Report ---
CT abdomen pelvis wo/w con HISTORY: 69 years-old Male R kidney lesion, increasing abdominal girth follow-up study in a patient with reported mass of the right kidney. COMPARISON: CT abdomen pelvis 09/30/2017 TECHNIQUE: Multiple axial CT images of the abdomen and pelvis were obtained both with and without the use of 70 mL Optiray 320 utilizing renal mass protocol. A dose lowering technique was used consisten t with the principals rowan ROMAN. FINDINGS: Cardiomegaly. Trace pericardial effusion. Clear lung bases. No pneumatosis or pneumoperitoneum. The s pleen, moderately atrophic pancreas and left adrenal gland are unremarkable. Mild nodular thickening of the right adrenal gland is similar to comparison. 1.6 cm nonenhancing hypodense lesion of the left hepatic lobe is unchanged from comparison suggestive of a probable cyst. The liver is otherwise unre markable. Cholelithiasis. No CT evidence of acute cholecystitis. No biliary ductal dilation. Patency of the hepatic and portal veins. Left nephrectomy. No mass, lesion or collection within the nephrectomy bed. No right-sided renal or u reteral calculi or hydronephrosis. 1.5 cm nonenhancing hypodense lesion of the posterior interpolar r ight kidney is suggestive of a cyst with a small dependent calcification. No urolith or obstructive u ropathy. 8 mm hypodense lesion of the superior pole right kidney on image 120 previously measured 5 m m and also is suggestive of a probable cyst. 1.3 cm fluid attenuating lesion of the superior pole rig ht kidney is new from comparison and also suggests probable cyst. 6 mm hypodense lesion of the dope and fabric worker ior interpolar right kidney is too small to characterize and demonstrates no appreciable enhancement. No enhancing renal mass lesion. The delayed images demonstrate no filling defects within the collect ing system or ureter to suggest urothelial malignancy. Prostamegaly with urinary bladder wall thicken ing and trabeculation. Perivesicular stranding. Mixed plaque of the abdominal aorta without aneurysm. There are a few prominent iliac and inguinal chain lymph nodes present measuring up to 9 mm which ar e nonspecific. Trace free pelvic fluid. No bowel obstruction. Mild wall thickening of the rectum with partial disten tion. Colonic diverticulosis. No acute diverticulitis. Normal appendix. Unremarkable soft tissues. De generative changes of the spine, pelvis and hips. There is resultant multilevel central canal stenosi s of the lumbar spine. No suspicious bony mass lesions. IMPRESSION: 1. Left nephrectomy. No lesion or collection within the nephrectomy bed. 2. No urolith, obstructive uropathy or urothelial mass lesion identified. 3. Prostamegaly with urinary bladder wall thickening and perivesicular stranding suggestive of chroni c bladder outlet obstruction. Correlate with urinalysis to exclude cystitis. 4. Trace free fluid within the dependent pelvis. 5. Cholelithiasis. 6. Additional findings as above. ACT 112: Negative or not required by law. The above report was generated using voice recognition software. It may contain grammatical, syntax o r spelling errors. Dictated: 09/06/2020 10:36 AM Transcribed: 09/06/2020 11:32 AM Galina [id number] Electronically signed by: Toby Olivera M.D. 09/06/2020 11:35 AM
[2020-09-06] MEDS: ISOSORBIDE MONO EXTENDED REL 30 MG TABCR PO SCH (14:39)
[2020-09-06] MEDS: ATORVASTATIN 40 MG TAB PO SCH (20:17)
--- NOTE | 2020-09-06 21:15 | Hospitalist Progress Note ---
Date of Service September 06, 2020 Assessment & Plan (1) Hypertension: 69yo male presenting with HTN urgency. BP markedly elevated in the ER. Patient feels some mild shortness of breath and feels quite anxious. Had a brief episode of possible slurred speech which has resolved. Labs significant for hypokalemia with K=3, renal function is intact. Stable anemia. Patient with history of RCC s/p laparoscopic nephrectomy performed on 05/01/2016 and is with solitary kidney at this time. Patient with longstanding history of hypertension. He follows with Nephrology. He was previously on Eplerenone and reports adequate blood pressure control with this medication. Eplerenone was discontinued in May due to gynecomastia and patient reports that his blood pressure has been elevated since. He is most currently on Losartan, Metoprolol, HCTZ and Doxazosin. He reports compliance with his medications as well as compliance with a low Na diet. Patient has AYAN and reports compliance with his CPAP as well. He is currently being treated for sinusitis with a course of Amoxicillin and has been taking Cloricidin HBP occasionally for symptom management. Question if patient has secondary cause of hypertension. Possibly renal artery stenosis secondary to atherosclerosis - solitary kidney. Possibly hyperaldosteronism - patient with hypokalemia with K=3, he reports better control of his blood pressure while on mineralcorticoid antagonist - however, was unable to tolerate No evidence of end organ damage at this time -workup for secondary Hypertension has been negative. -will continue current meds and monitor his Blood pressure. -Nephrology consultation appreciated (2) Solitary right kidney: Patient with history of RCC s/p laparoscopic nephrectomy on 05/01/16 -Noted (3) Dyslipidemia: Chronic -Continue Atorvastatin 40mg po daily (4) Paroxysmal atrial fibrillation: Presently in NSR, rate controlled although patient states that a rate of 86 is much faster than his baseline. -Continue Metoprolol -Continue Apixaban -Continue Flecainide (150mg qAM and 100mg po qPM) (5) AYAN (obstructive sleep apnea): Chronic -CPAP qHS -Patient may use own CPAP (6) Sinusitis: Patient currently being treated for sinusitis with Amoxicillin 500mg po BID x 5 day course. He was started on 09/02/20 -Continue Amoxicillin 500mg po BID through 09/07/20 F/E/N - Heplock. K repletion with 40mEq PO - monitor electrolytes, Low Na diet as tolerated Ppx - Patient anticoagulated on Apixaban - continue Code - Full Admission and Anticipated Discharge Date Admission Date: September 05, 2020 Subjective Patient reports feeling better. He has multiple questions about his condition which were answered. Review of Systems Review of Systems: All systems reviewed & are unremarkable except as noted in HPI & below Physical Exam Physical Exam: General: patient resting comfortably, NAD, anxious but non- toxic in appearance, AA&O x 4 Skin: warm, dry, intact, no rashes or lesions HEENT: NC/AT, PERRL, EOMI, anicteric sclera, conjunctiva without injection, external ear normal to inspection and nontender, nares patent, moist mucus membranes, dentition intact, no oropharyngeal lesions, neck supple, trachea midline, no LAD, no thyromegaly, no JVD Heart: +S1/S2, regular, no m/r/g Lungs: equal air entry bilaterally, no rales/rhonchi/wheezes Abd: +BS, soft, NT/ND, no masses/organomegaly/ascites Ext: warm, 2+ pulses in UE/LE bilaterally, no clubbing/cyanosis or trace pitting edema of bilateral LE, compression stockings in place Neuro: nonfocal, patient AA&O x 4, speech intact, no facial droop, moving all extremities on command with equal strength 5/5 Results & Data Results & Data ([facility]) Vital Signs (Past 12 Hours) Vital Signs Temp Pulse Pulse Resp BP Pulse Ox 09/06/20 19:27 36.6 C 61 20 142/67 H 92 09/06/20 16:00 73 09/06/20 15:48 36.9 C 54 L 19 167/82 H 95 09/06/20 11:12 37.0 C 50 L 18 157/80 H 98 PG Care Time/CCT Total # of Minutes Spent Total Time Spent with Patient: Total time spent is greater than 50% in coordination of care (as documented) at patient's floor/unit and/or counseling patient: Coding Level of Care Code 58007 Subseq Hosp Care Lvl 3 Diagnoses Hypertension I10 Solitary right kidney Q60.0 Dyslipidemia E78.5 Paroxysmal atrial fibrillation I48.0 AYAN (obstructive sleep apnea) G47.33 Sinusitis J32.9 Chronicity: unspecified Sinusitis location: unspecified location Time Spent (min) 35 (1) Sinusitis Chronicity: unspecified Sinusitis location: unspecified location Qualified Code(s): J32.9 - Chronic sinusitis, unspecified
[2020-09-07 06:32] LABS: BUN Creatinine Ratio 22.1 (10-20); Calcium 8.6 mg/dl (8.5-10.1); Creatinine Clr Calc Pharmacy 70.3 ml/min; Est GFR (African American) 77.3; Est GFR (Non-African American) 66.7; Potassium 3.9 mmol/L (3.5-5.1)
[2020-09-07] MEDS: CHLORTHALIDONE 25 MG TAB PO SCH (08:00)
[2020-09-07] MEDS: METOPROLOL SUCC 25MG EXT REL TAB PO SCH (08:00)
[2020-09-07] MEDS: LOSARTAN POTASSIUM 50 MG TAB PO SCH (08:00)
[2020-09-07] MEDS: FLECAINIDE ACETATE 100 MG TABLET PO SCH (08:00)
[2020-09-07] MEDS: AMOXICILLIN 500 MG CAP PO SCH (08:00)
[2020-09-07] MEDS: APIXABAN 5 MG TABLET PO SCH (08:01)
[2020-09-07] MEDS: ISOSORBIDE MONO EXTENDED REL 30 MG TABCR PO SCH (08:01)
[2020-09-07] MEDS: aMILoride HCL 5 MG TAB PO SCH (08:01)
--- NOTE | 2020-09-07 08:32 | Nephrology Progress Note ---
Date of Service September 07, 2020 Assessment & Plan (1) Hypertension: * Accelerated HTN - Improved following titration of medications. SBP 140 - 160 mmHg yesterday. Patient is tolerating current medical regimen without side effect and able to ambulate without orthostasis * Dietitian has provided education on low Na diet * Awaiting renin and aldosterone levels * TSH and cortisol levels were WNL * 24 hour urine Na only 168 mmol * Continue Metoprolol 25 mg 1/2 tablet daily. Patient is adequately beta blocked * Continue Losartan 100 mg qAM * Continue Chlorthalidone 25 mg daily to improve BP control and LE swelling * Continue Amiloride 5 mg po BID to improve BP control and treat hypokalemia * Continue Imdur 60 mg po qAM * Renal artery doppler is negative for BARBARA but revealed a 4 cm exophytic lesion involving the R kidney * 09/06/[address] was negative for malignancy. Renal lesions were c/w cysts * If discharge is anticipated, please have patient follow up w/ Dr. Carbone in 1 - 2 weeks for ongoing monitoring/management of HTN (2) Solitary right kidney: * s/p L nephrectomy 2015 due to RCCA * Baseline Cr 0.9 (3) Obesity: * AYAN, on CPAP therapy (4) Paroxysmal atrial fibrillation: * Managed w/ Metoprolol, Flecainide and Apixaban Admission and Anticipated Discharge Date Admission Date: September 05, 2020 Subjective Mr. Stallings was seen & examined in his hospital room this morning. He reports SBP 140 - 160 mmHg overnight. He denies side effects from his current medical regimen. Mr. Stallings was ambulating in the hallway without orthostatic symptoms this morning. Review of Systems Constitutional: no fever Eyes: no worsening vision Respiratory: no dyspnea Cardiovascular: + edema (pretibial pitting edema); no chest pain and no palpitations Gastrointestinal: no abdominal pain Physical Exam Constitutional: healthy appearing; not in distress Eyes: PERRL, conjunctivae normal, anicteric sclerae ENMT: external ear and nose normal, oropharynx normal Neck: trachea midline, no thyromegaly Respiratory: normal respiratory effort, lungs clear to auscultation Cardiovascular: Rate/Rhythm: regular rate and regular rhythm Heart Sounds: no cardiac rub Vessels: no JVD Extremities: + edema (1+ pretibial pitting edema bilaterally) Gastrointestinal (Abdomen): normal bowel sounds, soft, nontender, no hepatosplenomegaly (no aortic or renal arterial bruit) Inspection/Auscultation: + abdomen distended (no aortic or renal arterial bruit) and + hypoactive bowel sounds Percussion/Palpation: abdomen soft; abdomen nontender and no guarding Musculoskeletal: no cyanosis or clubbing, extremities motor strength 5/5 Skin: no rashes, warm and dry Neurologic: awake; not confused Results & Data ([facility]) Vital Signs (Past 12 Hours) Vital Signs Temp Pulse Pulse Resp BP BP Pulse Ox 09/07/20 07:27 37.7 C H 67 18 168/71 H 96 09/07/20 04:00 36.8 C 63 20 158/70 H 96 09/06/20 23:31 55 L 09/06/20 23:00 36.7 C 48 L 20 147/67 H 96 Laboratory Tests 09/05/20 09/05/20 09/05/20 01:05 01:11 01:11 WBC Hgb Hct Plt Count Sodium Potassium Chloride Carbon Dioxide BUN Creatinine Glucose Renin Activity Aldosterone TSH 2.060 Random Cortisol 15.33 Urine Color Yellow Urine Appearance Clear Urine pH 8.5 H Ur Specific Onia 1.009 Urine Protein Negative Urine Blood Trace H Urine RBC (Auto) 0-4 Urine Sodium 09/05/20 09/06/20 09/06/20 09:21 06:55 13:16 WBC 6.08 Hgb 13.1 L Hct 40.0 L Plt Count 220 Sodium Potassium Chloride Carbon Dioxide BUN Creatinine Glucose Renin Activity Pending Aldosterone Pending TSH Random Cortisol Urine Color Urine Appearance Urine pH Ur Specific Onia Urine Protein Urine Blood Urine RBC (Auto) Urine Sodium 105 09/07/20 05:32 WBC Hgb Hct Plt Count Sodium 141 Potassium 3.9 Chloride 109 H Carbon Dioxide 29 BUN 25 H Creatinine 1.12 Glucose 98 Renin Activity Aldosterone TSH Random Cortisol Urine Color Urine Appearance Urine pH Ur Specific Onia Urine Protein Urine Blood Urine RBC (Auto) Urine Sodium PG Care Time/CCT Total # of Minutes Spent Total Time Spent with Patient: Total time spent is greater than 50% in coordination of care (as documented) at patient's floor/unit and/or counseling patient: Coding Level of Care Code 01745 Subseq Hosp Care Lvl 3 Diagnoses Hypertension I10 Solitary right kidney Q60.0 Obesity E66.9 Paroxysmal atrial fibrillation I48.0
[2020-09-07] MEDS ORDERED: ISOSORBIDE MONO EXTENDED REL 30 MG TABCR PO STA (09:08)
--- NOTE | 2020-09-07 11:14 | Discharge Summary ---
Date of Service September 07, 2020 Admission HPI Per Admitting Provider Cesario Stallings is a 69yo male with history of HTN, PAF and AYAN presenting with hypertension. Patient follows with Nephrology for management with his blood pressure. He was previously treated with Eplerenone which resulted in gynecomastia therefore this medication was discontinued in May. He was then started on Amiloride daily with no improvement in gynecomastia therefore this medication was discontinued as well. He reports overall poor control of his blood pressure since discontinuing the Eplerenone. Patient presents today with hypertension. He reports his blood pressure was elevated early in the evening - appx 160 systolic. He attended a family birthday green party and when he returned his blood pressure was 187 systolic which prompted him to come to the ER. Since being in the ER he has remained hy pertensive ranging 176-243 / 83-104. He feels anxious and some mild shortness of breath and palpitations. He had a brief episode of what he thought was slurred speech which has since resolved. Otherwise he denies chest pain, dizziness, MCDONALD, visual disturbance, focal numbness/weakness, abdominal pain, back pain. He reports compliance with his medications although he did miss his PM meds tonight because he was in the ER. He wears his CPAP qHS and has it with him today. He was recently diagnosed with sinusitis and started on Amoxicillin. He has been taking that medication as prescribed. Also has been taking Coricidin HBP for his sinus symptoms. He denies tobacco use, heavy caffeine use or EtOH. No additional complaints at this time. ER Course: Hydralazine 10mg IV, 5mg IV, KCl 40mEq, NSS x 500 Discharge Data Allergies Allergy/AdvReac Type Severity Reaction Status Date / Time eplerenone AdvReac Intermediate gynecomasti Verified 09/05/20 09:23 a amlodipine AdvReac Mild Edema Verified 09/05/20 09:23 lower extrimities zoster vaccine live AdvReac Unknown TIRED, Verified 09/05/20 09:23 SHIVERS AT NIGHT, WEAK Consultations 09/05/20 04:13 ED Decision to Admit Stat 09/05/20 09:10 Consult Nephrology Routine Ordered Studies 09/05/20 01:27 CT head/brain wo con Urgent 09/05/20 09:10 US duplex renal artery Routine 09/06/20 09:33 CT abdomen pelvis wo/w con Routine Hospital Course (1) Hypertension: Hypertensive crisis e/b BP as high as 243/103, SOB, and episode of slurred speech 69yo male presenting with HTN urgency. BP markedly elevated in the ER. Patient feels some mild shortness of breath and feels quite anxious. Had a brief episode of possible slurred speech which has resolved. Labs significant for hypokalemia with K=3, renal function is intact. Stable anemia. Patient with history of RCC s/p laparoscopic nephrectomy performed on 05/01/2016 and is with solitary kidney at this time. Patient with longstanding history of hypertension. He follows with Nephrology. He was previously on Eplerenone and reports adequate blood pressure control with this medication. Eplerenone was discontinued in May due to gynecomastia and patient reports that his blood pressure has been elevated since. He is most currently on Losartan, Metoprolol, HCTZ and Doxazosin. He reports compliance with his medications as well as compliance with a low Na diet. Patient has AYAN and reports compliance with his CPAP as well. He is currently being treated for sinusitis with a course of Amoxicillin and has been taking Cloricidin HBP occasionally for symptom management. Question if patient has secondary cause of hypertension. Possibly renal artery stenosis secondary to atherosclerosis - solitary kidney. Possibly hyperaldosteronism - patient with hypokalemia with K=3, he reports better control of his blood pressure while on mineralcorticoid antagonist - however, was unable to tolerate No evidence of end organ damage at this time -workup for secondary Hypertension has been negative. -will continue current meds and monitor his Blood pressure. -Nephrology consultation appreciated (2) Solitary right kidney: Patient with history of RCC s/p laparoscopic nephrectomy on 05/01/16 -Noted (3) Dyslipidemia: Chronic -Continue Atorvastatin 40mg po daily (4) Paroxysmal atrial fibrillation: Presently in NSR, rate controlled although patient states that a rate of 86 is much faster than his baseline. -Continue Metoprolol -Continue Apixaban -Continue Flecainide (150mg qAM and 100mg po qPM) (5) AYAN (obstructive sleep apnea): Chronic -CPAP qHS -Patient may use own CPAP (6) Sinusitis: Patient currently being treated for sinusitis with Amoxicillin 500mg po BID x 5 day course. He was started on 09/02/20 -Continue Amoxicillin 500mg po BID through 09/07/20 F/E/N - Heplock. K repletion with 40mEq PO - monitor electrolytes, Low Na diet as tolerated Ppx - Patient anticoagulated on Apixaban - continue Code - Full Discharge Plan Discharge Items Reason For Visit: HTN URGENCY Medications and DC Order Prescriptions: No Action metoprolol succinate 25 mg tablet extended release 24 hr 12.5 mg PO DAILY Qty: 45 RF: 3 flecainide 100 mg tablet 150 mg PO .COMPLEX Qty: 225 RF: 3 atorvastatin 40 mg tablet 40 mg PO QPM Qty: 90 RF: 3 Eliquis 5 mg tablet 5 mg PO BID Qty: 180 RF: 3 doxazosin [Cardura] 1 mg tablet 1 mg PO BID Qty: 180 RF: 2 potassium chloride 10 mEq capsule, extended release 10 meq PO DAILY Qty: 90 RF: 2 amoxicillin 500 mg capsule 500 mg PO BID Qty: 10 RF: 0 multivitamin [Multiple Vitamins] Tablet 1 tab PO DAILY RF: 0 omega [id number] oil [Fish Oil] 1,000 mg (120 mg-180 mg) Capsule 1 cap PO DAILY RF: 0 hydrochlorothiazide 25 mg tablet 25 mg PO QAM RF: 0 losartan 100 mg tablet 100 mg PO DAILY RF: 0 hydrochlorothiazide 12.5 mg tablet 12.5 mg PO QPM RF: 0 Admission Data Admit Date/Time: 09/05/20 05:01 Attending Provider: Rian Orourke Admit Provider: Ashley Keller Primary Care Provider: Elina Keller. Other Providers: Ashley Keller ; Negrito Carbone Coding Diagnoses Hypertension I10 Solitary right kidney Q60.0 Dyslipidemia E78.5 Paroxysmal atrial fibrillation I48.0 AYAN (obstructive sleep apnea) G47.33 Sinusitis J32.9 Sinusitis location: unspecified location Chronicity: unspecified
[2020-09-08] MEDS ORDERED: ISOSORBIDE MONO EXTENDED REL 60 MG TABCR PO SCH (09:00)
[2020-09-09 01:37] LABS: Renin Activity 0.13 ng/mL/h (0.25-5.82)
== END 2020-09-07 12:45 | disposition home or self-care (01) | DRG 305 ==
LOC: ED 00:49 → SUATTDRO 05:01 → 1E 05:01 → 2N 22:48